=== PATIENT | female | born 1975 | race Caucasian/White ===

== ENCOUNTER → 2018-09-13 10:35 | Outpatient (CLI) | payer BC, SELFPAY ==
--- NOTE | 2018-09-13 10:37 | DI.RAD.S_ITS ---
PROCEDURE: XR HIP W PEL IF DONE LT MIN 4V INDICATIONS: Left hip pain-possible osteoarthritis TECHNIQUE: AP pelvis with lateral view(s) of the left and right hip(s). COMPARISON: None. FINDINGS: Bones: No fractures or dislocations. Pelvic ring appears intact. No suspicious bony lesions. There is mild symmetric hip joint degeneration bilaterally. There is a small ossicle adjacent to the left superior labrum. Soft tissues: The visualized bowel gas pattern is normal. No suspicious soft tissue calcifications. IMPRESSION: 1. A small ossicle adjacent to the left superior labrum. If labral pathology is suspected, MR hip arthrogram may be helpful. 2. Mild symmetric hip joint degeneration bilaterally. Dictated by: Aneesh Singh M.D. on 09/13/2018 at 13:41 Approved by: Aneesh Singh M.D. on 09/13/2018 at 13:43
== END ==
PROVIDERS: Family Provider Physician Assistant; PCP Physician Assistant; Visit Provider Physician Assistant
DX: M25.552 Pain in left hip (principal); M16.0 Bilateral primary osteoarthritis of hip; G89.29 Other chronic pain
CPT/HCPCS: 73522

== ENCOUNTER 2019-04-18 09:00 | Outpatient (RCR) | payer BC, SELFPAY ==
--- NOTE | 2018-10-18 12:48 | PT.OIE ---
Current Diagnoses Other chronic pain (10/18/18) Pain in left hip (10/18/18) Other symptoms and signs involving the musculoskeletal system (10/18/18) Past Surgical History Status post laparoscopy Provider Visit Care Team Role Provider Type Indu Kim PA-C Attending Provider Advanced Black Puller Primary Care Provider Specialty: Medical Address: [address] [place] [address], [id number] Email: [email or web address] Physical Therapy Initial Evaluation PT-OP-A Visit Information Start: 10/18/18 11:23 Freq: Status: Active Protocol: Document 10/18/18 09:45 HH (Rec: 10/18/18 12:48 HH [email or web address]) Out-Patient Physical Therapy Visit Information Visit Information Visit Type Initial Evaluation Visit Start Time 09:45 Visit Stop Time 10:30 Total Visit Minutes 45 Visit Number 1 Number of SALSA DANCE INSTRUCTOR Visits 0 Evaluation Information Evaluation Date 10/18/18 PT-OP-B Current Condition Start: 10/18/18 11:23 Freq: Status: Active Protocol: Document 10/18/18 09:45 HH (Rec: 10/18/18 12:48 HH [email or web address]) Current Condition History of Current Condition Onset Date 2 years ago Current Complaints L hip pain, difficulty in running and lifting History of Current Condition Pt is a 43 yo female who has 4 procedure for her 4 children over the past 20 years. Pt stated her L hip pain symptoms started around 2years ago as a constant deep, achy and dull joint pain and occasional pinching sensation. Pain tends to get worse with inactivity/ increase physical work such as running and lifting but gets better with warm up and non strenuous movements. Pt thinks she has poor hip flexibility and poor abdominal strength. She noticed there's some separation between her abdominal muscle and bulging muscle mass on the side of belly button. Pt currently works out 3x/week and she notices her quads and hip muscles tend to get sore/ fatigue very often during abdominal exercises. She reports she has hernia at L lower quadrant of her abdominal area and it is very painful during coughing/ exertion. Pt tends to give pressure/compressure to that area during coughing and exertion. In addition, pt also c/o L jaw pain, R shoulder pain and R mid back pain since her 2nd children was born when she was 22yo. Pt stated she did x-ray and reports there's arthritis change and hopefully she doesnt need any surgery to address aforementioned symptoms. Treatment Goals Patient/Caregiver Goals 1. Avoid surgery for hernia 2. To increase hip mobility and abdominal strength 3. To be able to run / lift weights again as her workout routine. Prior Functional Status Baseline Function- ADL's Independent Baseline Function- Mobility Independent Current Functional Impairments (Reported) Functional Limitations- ADL's indepedent without difficulty Functional Limitations- Mobility/Gait indepedent without difficulty Functional Limitations- Recreation/ Unable to run / lift heavy Hobbies weight Personal Factors Other Personal Factors That May Effect L lower abdominal hernia Therapy/Recovery multiple procedure at lower abdominal PT-OP-C Subjective Start: 10/18/18 11:23 Freq: Status: Active Protocol: Document 10/18/18 09:45 (Rec: 10/18/18 12:48 [email or web address]) OP-PT Subjective Patient Comments Patient Comments My hip feels achy constantly. Patient Questionnaires Lower Extremity Functional Scale LEFS Score 76 LEFS Impairment 1 to 19% Impaired (Score 63-79 ) OP-PT Pain Assessment Location Left Hip Intensity 4 Scale Used Numeric (1 - 10) Description Aching Dull Pinching Pressure Frequency Constant Pain Aggravating Factors Position Changing Position Sitting Lifting Pain Alleviating Factors Standing Exercise PT-OP-F Manual Assessment Start: 10/18/18 11:23 Freq: Status: Active Protocol: Document 10/18/18 09:45 (Rec: 10/18/18 12:48 [email or web address]) Manual Assessments Soft Tissue Assessment Soft Tissue Mobility Assessment Tenderness noted at L hip flexors and adductors region PT-OP-H Neuro Start: 10/18/18 11:23 Freq: Status: Active Protocol: Document 10/18/18 09:45 (Rec: 10/18/18 12:48 [email or web address]) Deep Tendon Reflex & Clonus Assessment Deep Tendon Reflex Right Achilles Deep Tendon Reflex 2+ Normal Left Achilles Deep Tendon Reflex 2+ Normal Right Patellar Deep Tendon Reflex 2+ Normal Left Patellar Deep Tendon Reflex 2+ Normal PT-OP-J Posture/Palpation/Skin Start: 10/18/18 11:23 Freq: Status: Active Protocol: Document 10/18/18 09:45 HH (Rec: 10/18/18 12:48 [email or web address]) Posture Evaluation Position Standing Evaluation View Posterior T-Spine Posture Flexible Scoliosis on (L) L-Spine Posture Flexible Scoliosis on (R) PT-OP-K Range of Motion Start: 10/18/18 11:23 Freq: Status: Active Protocol: Document 10/18/18 09:45 (Rec: 10/18/18 12:48 [email or web address]) Lumbar Spine Range of Motion Lumbar Spine Active Percentage Testing Position Standing Flexion 80 Extension 60 Rotation Left 60 Rotation Right 60 Lateral Flexion Left 60 Lateral Flexion Right 60 ROM Limitations Soft Tissue Tightness Hip Goniometric Range of Motion Hip Measured in Degrees Right Active Hip ROM WFL Yes Testing Position Supine Flexion w/Knee Flexed 142 Extension 20 Abduction 40 Left Active Hip ROM WFL Yes Testing Position Supine Flexion w/Knee Flexed 145 Extension 20 Abduction 35 PT-OP-L Special Tests Start: 10/18/18 11:23 Freq: Status: Active Protocol: Document 10/18/18 09:45 (Rec: 10/18/18 12:48 [email or web address]) Special Tests Lumbar Spine Special Tests Other- 1 Test Results +ve Comments noticeable separation between rectus abdominis Standing Flexion Test Results +ve Comments mild hump at L thoracic and R lumbar region Hip Special Tests ELVIA Test Results -ve bilaterally Scour Test Test Results +ve bilaterally Comments reports of slight discomfort bilaterally Viraj Test Results -ve bilaterally PT-OP-M Strength Start: 10/18/18 11:23 Freq: Status: Active Protocol: Document 10/18/18 09:45 (Rec: 10/18/18 12:48 [email or web address]) Trunk Strength Trunk Manual Muscle Testing Testing Position Supine Flexion 3+ Fair+ Comments requested pt to perform modified hollow hold with knee flexed. Pt uses upper abdominal and hip flexors primarily to maintain stability. Pt reports doesnt feel much at lower abs. Hip Strength Hip Manual Muscle Testing Right Flexion (L2) 3+ Fair+ Extension (S1) 3+ Fair+ Abduction 4+ Good+ Adduction 4+ Good+ Left Flexion (L2) 3+ Fair+ Extension (S1) 3+ Fair+ Abduction 4+ Good+ Adduction 4+ Good+ PT-OP-T Assessment and Plan Start: 10/18/18 11:23 Freq: Status: Active Protocol: Document 10/18/18 09:45 (Rec: 10/18/18 12:48 [email or web address]) Physical Therapy Assessment Rehab Potential Rehabilitation Potential Excellent Evaluation Complexity Number of Personal Factors/Comorbidities 1-2 Number of Body Systems Impaired 1-2 Clinical Presentation at Evaluation Stable Impairments Impairments Activity Tolerance Functional Activities Pain Posture ROM Soft Tissue Mobility Strength Tone Other Concerns Barriers to Rehabilitation L lower abdominal hernia multiple procedure at lower abdominal Goals Running Impairment pt currently unable to run due to hip pain Chief Concierge Goal (LTG) Pt will be able to run for a 1 mile without symptoms LTG Duration 8 weeks HEP Impairment pt does not have a safe HEP to comply Chief Concierge Goal (LTG) Pt will comply to HEP independently with proper body mechanics to improve overall strength and injury prevention LEFS Impairment lowered LEFS score Shelter Goal (LTG) To increase pt's impairment level to 0% (currently 1-19% at 76) to improve quality of life LTG Duration 12 weeks Strength Impairment impaired abdominal and hip strength Chief Concierge Goal (LTG) To improve pt's hip and abdominal strength by 1MMT to increase pt's trunk stability for lifting/ running activities LTG Duration 12 weeks Assessment Summary Assessment Pt is a 43yo female presented to clinic with L hip pain since 2 years ago. Pt had 4 c- section procedures over the past 20 years and L abdominal hernia. Upon assessment, pt presents noticeable decreased abdominal and hip strength. There's also a noticeable separation between rectus abdominal (approx 2mm) which possibly indicates Diastasis Recti. Pt also tends to primarily use upper abdominals and hip flexors during hollow hold position/ sit up exercise which possibly increases amf mechanic stress to B hip joints anteriorly. Pt will benefit from skill physical therapy for trunk stabilization/ sthrengthening, hip stabilization, hip/ B LEs strengthening, manual therapy , postural synagogue. Physical Therapy Plan Frequency and Duration Frequency of Treatment 2x/Week Duration of Treatment 12 Plan of Care Start Date 10/18/18 Plan of Care End Date 01/17/19 Therapeutic Interventions Therapeutic Interventions Home Exercise Program Joint Mobilizations Manual Therapy Neuromuscular Re-education Patient/Caregiver Education Self-Care/Home Management Soft Tissue Mobilization Therapeutic Activities Therapeutic Exercises Modalities Electric Stimulation Hot Packs Ultrasound Next Visit Focus/Plan Next Note Type Treatment Note Next Visit Plan assess post hip joint capsule mobility abdominal stabilization and hip stabilization training as gabrielle
--- NOTE | 2018-10-18 12:48 | PT.OPPOC ---
Current Diagnoses Other chronic pain (10/18/18) Pain in left hip (10/18/18) Other symptoms and signs involving the musculoskeletal system (10/18/18) Provider Visit Care Team Role Provider Type Indu Kim PA-C Attending Provider Advanced Assistant Produce Manager Primary Care Provider Specialty: Medical Address: [address] [place] [address], [id number] Email: [email or web address] Plan Of Care PT-OP-T Assessment and Plan Start: 10/18/18 11:23 Freq: Status: Active Protocol: Document 10/18/18 09:45 HH (Rec: 10/18/18 12:48 [email or web address]) Physical Therapy Assessment Rehab Potential Rehabilitation Potential Excellent Evaluation Complexity Number of Personal Factors/Comorbidities 1-2 Number of Body Systems Impaired 1-2 Clinical Presentation at Evaluation Stable Impairments Impairments Activity Tolerance Functional Activities Pain Posture ROM Soft Tissue Mobility Strength Tone Other Concerns Barriers to Rehabilitation L lower abdominal hernia multiple procedure at lower abdominal Goals Running Impairment pt currently unable to run due to hip pain Finish Specialist Goal (LTG) Pt will be able to run for a 1 mile without symptoms LTG Duration 8 weeks HEP Impairment pt does not have a safe HEP to comply Finish Specialist Goal (LTG) Pt will comply to HEP independently with proper body mechanics to improve overall strength and injury prevention LEFS Impairment lowered LEFS score Finish Specialist Goal (LTG) To increase pt's impairment level to 0% (currently 1-19% at 76) to improve quality of life LTG Duration 12 weeks Strength Impairment impaired abdominal and hip strength Finish Specialist Goal (LTG) To improve pt's hip and abdominal strength by 1MMT to increase pt's trunk stability for lifting/ running activities LTG Duration 12 weeks Assessment Summary Assessment Pt is a 43yo female presented to clinic with L hip pain since 2 years ago. Pt had 4 c- section procedures over the past 20 years and L abdominal hernia. Upon assessment, pt presents noticeable decreased abdominal and hip strength. There's also a noticeable separation between rectus abdominal (approx 2mm) which possibly indicates Diastasis Recti. Pt also tends to primarily use upper abdominals and hip flexors during hollow hold position/ sit up exercise which possibly increases video player mechanic stress to B hip joints anteriorly. Pt will benefit from skill physical therapy for trunk stabilization/ sthrengthening, hip stabilization, hip/ B LEs strengthening, manual therapy , postural uatsdin. Physical Therapy Plan Frequency and Duration Frequency of Treatment 2x/Week Duration of Treatment 12 Plan of Care Start Date 10/18/18 Plan of Care End Date 01/17/19 Therapeutic Interventions Therapeutic Interventions Home Exercise Program Joint Mobilizations Manual Therapy Neuromuscular Re-education Patient/Caregiver Education Self-Care/Home Management Soft Tissue Mobilization Therapeutic Activities Therapeutic Exercises Modalities Electric Stimulation Hot Packs Ultrasound Next Visit Focus/Plan Next Note Type Treatment Note Next Visit Plan assess post hip joint capsule mobility abdominal stabilization and hip stabilization training as gabrielle Plan of Care Dates Plan of Care Start Date 10/18/18 Plan of Care End Date 01/17/19 Please Sign and Return: I have reviewed this Plan of Care and certify that the skilled therapy services above are required to meet the patient?s needs. Physician Signature Date Printed Name and Credentials Clinical Instructor Signature Printed Name and Credentials
--- NOTE | 2018-10-24 18:53 | PT.OTN ---
Current Diagnoses Other chronic pain (10/24/18) Pain in left hip (10/24/18) Other symptoms and signs involving the musculoskeletal system (10/24/18) Physical Therapy Treatment Note PT-OP-A Visit Information Start: 10/18/18 11:23 Freq: Status: Active Protocol: Document 10/24/18 18:47 [facility] (Rec: 10/24/18 18:53 [facility] [email or web address]) Out-Patient Physical Therapy Visit Information Visit Information Visit Type Treatment Note Visit Start Time 14:35 Visit Stop Time 15:20 Total Visit Minutes 45 Visit Number 2 Number of AUTOMOTIVE PARTS COUNTER ASSOCIATE Visits 0 PT-OP-B Current Condition Start: 10/18/18 11:23 Freq: Status: Active Protocol: Document 10/18/18 09:45 HH (Rec: 10/18/18 12:48 HH [email or web address]) Current Condition History of Current Condition Onset Date 2 years ago Current Complaints L hip pain, difficulty in running and lifting History of Current Condition Pt is a 43 yo female who has 4 procedure for her 4 children over the past 20 years. Pt stated her L hip pain symptoms started around 2years ago as a constant deep, achy and dull joint pain and occasional pinching sensation. Pain tends to get worse with inactivity/ increase physical work such as running and lifting but gets better with warm up and non strenuous movements. Pt thinks she has poor hip flexibility and poor abdominal strength. She noticed there's some separation between her abdominal muscle and bulging muscle mass on the side of belly button. Pt currently works out 3x/week and she notices her quads and hip muscles tend to get sore/ fatigue very often during abdominal exercises. She reports she has hernia at L lower quadrant of her abdominal area and it is very painful during coughing/ exertion. Pt tends to give pressure/compressure to that area during coughing and exertion. In addition, pt also c/o L jaw pain, R shoulder pain and R mid back pain since her 2nd children was born when she was 22yo. Pt stated she did x-ray and reports there's arthritis change and hopefully she doesnt need any surgery to address aforementioned symptoms. Treatment Goals Patient/Caregiver Goals 1. Avoid surgery for hernia 2. To increase hip mobility and abdominal strength 3. To be able to run / lift weights again as her workout routine. Prior Functional Status Baseline Function- ADL's Independent Baseline Function- Mobility Independent Current Functional Impairments (Reported) Functional Limitations- ADL's indepedent without difficulty Functional Limitations- Mobility/Gait indepedent without difficulty Functional Limitations- Recreation/ Unable to run / lift heavy Hobbies weight Personal Factors Other Personal Factors That May Effect L lower abdominal hernia Therapy/Recovery multiple procedure at lower abdominal PT-OP-C Subjective Start: 10/18/18 11:23 Freq: Status: Active Protocol: Document 10/24/18 18:47 [facility] (Rec: 10/24/18 18:53 [facility] [email or web address]) OP-PT Subjective Patient Comments Patient Comments Pt reports she is excited to start PT PT-OP-F Manual Assessment Start: 10/18/18 11:23 Freq: Status: Active Protocol: Document 10/18/18 09:45 HH (Rec: 10/18/18 12:48 HH [email or web address]) Manual Assessments Soft Tissue Assessment Soft Tissue Mobility Assessment Tenderness noted at L hip flexors and adductors region PT-OP-H Neuro Start: 10/18/18 11:23 Freq: Status: Active Protocol: Document 10/18/18 09:45 HH (Rec: 10/18/18 12:48 HH [email or web address]) Deep Tendon Reflex & Clonus Assessment Deep Tendon Reflex Right Achilles Deep Tendon Reflex 2+ Normal Left Achilles Deep Tendon Reflex 2+ Normal Right Patellar Deep Tendon Reflex 2+ Normal Left Patellar Deep Tendon Reflex 2+ Normal PT-OP-J Posture/Palpation/Skin Start: 10/18/18 11:23 Freq: Status: Active Protocol: Document 10/18/18 09:45 HH (Rec: 10/18/18 12:48 HH [email or web address]) Posture Evaluation Position Standing Evaluation View Posterior T-Spine Posture Flexible Scoliosis on (L) L-Spine Posture Flexible Scoliosis on (R) PT-OP-K Range of Motion Start: 10/18/18 11:23 Freq: Status: Active Protocol: Document 10/18/18 09:45 HH (Rec: 10/18/18 12:48 HH [email or web address]) Lumbar Spine Range of Motion Lumbar Spine Active Percentage Testing Position Standing Flexion 80 Extension 60 Rotation Left 60 Rotation Right 60 Lateral Flexion Left 60 Lateral Flexion Right 60 ROM Limitations Soft Tissue Tightness Hip Goniometric Range of Motion Hip Measured in Degrees Right Active Hip ROM WFL Yes Testing Position Supine Flexion w/Knee Flexed 142 Extension 20 Abduction 40 Left Active Hip ROM WFL Yes Testing Position Supine Flexion w/Knee Flexed 145 Extension 20 Abduction 35 PT-OP-L Special Tests Start: 10/18/18 11:23 Freq: Status: Active Protocol: Document 10/18/18 09:45 HH (Rec: 10/18/18 12:48 HH [email or web address]) Special Tests Lumbar Spine Special Tests Other- 1 Test Results +ve Comments noticeable separation between rectus abdominis Standing Flexion Test Results +ve Comments mild hump at L thoracic and R lumbar region Hip Special Tests ELVIA Test Results -ve bilaterally Scour Test Test Results +ve bilaterally Comments reports of slight discomfort bilaterally Viraj Test Results -ve bilaterally PT-OP-M Strength Start: 10/18/18 11:23 Freq: Status: Active Protocol: Document 10/18/18 09:45 HH (Rec: 10/18/18 12:48 HH [email or web address]) Trunk Strength Trunk Manual Muscle Testing Testing Position Supine Flexion 3+ Fair+ Comments requested pt to perform modified hollow hold with knee flexed. Pt uses upper abdominal and hip flexors primarily to maintain stability. Pt reports doesnt feel much at lower abs. Hip Strength Hip Manual Muscle Testing Right Flexion (L2) 3+ Fair+ Extension (S1) 3+ Fair+ Abduction 4+ Good+ Adduction 4+ Good+ Left Flexion (L2) 3+ Fair+ Extension (S1) 3+ Fair+ Abduction 4+ Good+ Adduction 4+ Good+ PT-OP-Q Treatments Start: 10/18/18 11:23 Freq: Status: Active Protocol: Document 10/24/18 18:47 [facility] (Rec: 10/24/18 18:53 [facility] [email or web address]) Therapeutic Exercises Supine Exercises viraj test Supine Exercise Name stretch Side bilateral Reps/Minutes 30 sec TAbd Supine Exercise Name transverse abdominus engagmeent Reps/Minutes 5 sec hold with breathing x10 Comments unable to add LE movement w/ hip flexor Prone Exercises IR/ER Prone Exercise Name resisted Side bilateral Equipment Used L1 Reps/Minutes 10 Other Exercises quadruped Other Exercise Name hip ext Side bilateral Reps/Minutes 10 Comments focus on core & neutral spine yoga Other Exercise Name jovanny pose fwd & to side ( 30sec), downward dog ([id number]) , cat/camel (10) Manual Therapy Treatment Joint Mobilizations innominate Joint L Direction flex FM sacrum Joint sacrum Direction R UPA FM hip Joint L hip Direction on axis ER & IR FM w/neuro re edu for range; inf glide PT-OP-T Assessment and Plan Start: 10/18/18 11:23 Freq: Status: Active Protocol: Document 10/24/18 18:47 [facility] (Rec: 10/24/18 18:53 [facility] [email or web address]) Physical Therapy Assessment Goals Running Impairment pt currently unable to run due to hip pain Care Home Goal (LTG) Pt will be able to run for a 1 mile without symptoms LTG Duration 8 weeks HEP Impairment pt does not have a safe HEP to comply Care Home Goal (LTG) Pt will comply to HEP independently with proper body mechanics to improve overall strength and injury prevention LEFS Impairment lowered LEFS score Lobbyist Goal (LTG) To increase pt's impairment level to 0% (currently 1-19% at 76) to improve quality of life LTG Duration 12 weeks Strength Impairment impaired abdominal and hip strength Care Home Goal (LTG) To improve pt's hip and abdominal strength by 1MMT to increase pt's trunk stability for lifting/ running activities LTG Duration 12 weeks Assessment Summary Assessment Pt has difficulty with using core mm for LE movements and requires significant use of hip flexors. Pt did well with quadruped for core activiation . She has significant deficits and core facilitation & utilization. Physical Therapy Plan Frequency and Duration Frequency of Treatment 2x/Week Duration of Treatment 12 Plan of Care Start Date 10/18/18 Plan of Care End Date 01/17/19 Next Visit Focus/Plan Next Note Type Treatment Note Next Visit Plan posture edu, PNF in s/l, hip & pelvis mobility
--- NOTE | 2018-10-26 15:18 | PT.OTN ---
Current Diagnoses Other chronic pain (10/26/18) Pain in left hip (10/26/18) Other symptoms and signs involving the musculoskeletal system (10/26/18) Physical Therapy Treatment Note PT-OP-A Visit Information Start: 10/18/18 11:23 Freq: Status: Active Protocol: Document 10/26/18 14:12 [facility] (Rec: 10/26/18 15:18 [facility] [id number]) Out-Patient Physical Therapy Visit Information Visit Information Visit Type Treatment Note Visit Start Time 14:30 Visit Stop Time 15:10 Total Visit Minutes 40 Visit Number 3 Number of CORE MOUNTER Visits 0 PT-OP-B Current Condition Start: 10/18/18 11:23 Freq: Status: Active Protocol: Document 10/18/18 09:45 HH (Rec: 10/18/18 12:48 HH [email or web address]) Current Condition History of Current Condition Onset Date 2 years ago Current Complaints L hip pain, difficulty in running and lifting History of Current Condition Pt is a 43 yo female who has 4 procedure for her 4 children over the past 20 years. Pt stated her L hip pain symptoms started around 2years ago as a constant deep, achy and dull joint pain and occasional pinching sensation. Pain tends to get worse with inactivity/ increase physical work such as running and lifting but gets better with warm up and non strenuous movements. Pt thinks she has poor hip flexibility and poor abdominal strength. She noticed there's some separation between her abdominal muscle and bulging muscle mass on the side of belly button. Pt currently works out 3x/week and she notices her quads and hip muscles tend to get sore/ fatigue very often during abdominal exercises. She reports she has hernia at L lower quadrant of her abdominal area and it is very painful during coughing/ exertion. Pt tends to give pressure/compressure to that area during coughing and exertion. In addition, pt also c/o L jaw pain, R shoulder pain and R mid back pain since her 2nd children was born when she was 22yo. Pt stated she did x-ray and reports there's arthritis change and hopefully she doesnt need any surgery to address aforementioned symptoms. Treatment Goals Patient/Caregiver Goals 1. Avoid surgery for hernia 2. To increase hip mobility and abdominal strength 3. To be able to run / lift weights again as her workout routine. Prior Functional Status Baseline Function- ADL's Independent Baseline Function- Mobility Independent Current Functional Impairments (Reported) Functional Limitations- ADL's indepedent without difficulty Functional Limitations- Mobility/Gait indepedent without difficulty Functional Limitations- Recreation/ Unable to run / lift heavy Hobbies weight Personal Factors Other Personal Factors That May Effect L lower abdominal hernia Therapy/Recovery multiple procedure at lower abdominal PT-OP-C Subjective Start: 10/18/18 11:23 Freq: Status: Active Protocol: Document 10/26/18 14:12 [facility] (Rec: 10/26/18 15:18 [facility] [id number]) OP-PT Subjective Patient Comments Patient Comments Pt reports compliance with HEP PT-OP-F Manual Assessment Start: 10/18/18 11:23 Freq: Status: Active Protocol: Document 10/18/18 09:45 HH (Rec: 10/18/18 12:48 HH [email or web address]) Manual Assessments Soft Tissue Assessment Soft Tissue Mobility Assessment Tenderness noted at L hip flexors and adductors region PT-OP-H Neuro Start: 10/18/18 11:23 Freq: Status: Active Protocol: Document 10/18/18 09:45 HH (Rec: 10/18/18 12:48 HH [email or web address]) Deep Tendon Reflex & Clonus Assessment Deep Tendon Reflex Right Achilles Deep Tendon Reflex 2+ Normal Left Achilles Deep Tendon Reflex 2+ Normal Right Patellar Deep Tendon Reflex 2+ Normal Left Patellar Deep Tendon Reflex 2+ Normal PT-OP-J Posture/Palpation/Skin Start: 10/18/18 11:23 Freq: Status: Active Protocol: Document 10/18/18 09:45 HH (Rec: 10/18/18 12:48 HH [email or web address]) Posture Evaluation Position Standing Evaluation View Posterior T-Spine Posture Flexible Scoliosis on (L) L-Spine Posture Flexible Scoliosis on (R) PT-OP-K Range of Motion Start: 10/18/18 11:23 Freq: Status: Active Protocol: Document 10/18/18 09:45 HH (Rec: 10/18/18 12:48 HH [email or web address]) Lumbar Spine Range of Motion Lumbar Spine Active Percentage Testing Position Standing Flexion 80 Extension 60 Rotation Left 60 Rotation Right 60 Lateral Flexion Left 60 Lateral Flexion Right 60 ROM Limitations Soft Tissue Tightness Hip Goniometric Range of Motion Hip Measured in Degrees Right Active Hip ROM WFL Yes Testing Position Supine Flexion w/Knee Flexed 142 Extension 20 Abduction 40 Left Active Hip ROM WFL Yes Testing Position Supine Flexion w/Knee Flexed 145 Extension 20 Abduction 35 PT-OP-L Special Tests Start: 10/18/18 11:23 Freq: Status: Active Protocol: Document 10/18/18 09:45 HH (Rec: 10/18/18 12:48 HH [email or web address]) Special Tests Lumbar Spine Special Tests Other- 1 Test Results +ve Comments noticeable separation between rectus abdominis Standing Flexion Test Results +ve Comments mild hump at L thoracic and R lumbar region Hip Special Tests ELVIA Test Results -ve bilaterally Scour Test Test Results +ve bilaterally Comments reports of slight discomfort bilaterally Viraj Test Results -ve bilaterally PT-OP-M Strength Start: 10/18/18 11:23 Freq: Status: Active Protocol: Document 10/18/18 09:45 HH (Rec: 10/18/18 12:48 HH [email or web address]) Trunk Strength Trunk Manual Muscle Testing Testing Position Supine Flexion 3+ Fair+ Comments requested pt to perform modified hollow hold with knee flexed. Pt uses upper abdominal and hip flexors primarily to maintain stability. Pt reports doesnt feel much at lower abs. Hip Strength Hip Manual Muscle Testing Right Flexion (L2) 3+ Fair+ Extension (S1) 3+ Fair+ Abduction 4+ Good+ Adduction 4+ Good+ Left Flexion (L2) 3+ Fair+ Extension (S1) 3+ Fair+ Abduction 4+ Good+ Adduction 4+ Good+ PT-OP-Q Treatments Start: 10/18/18 11:23 Freq: Status: Active Protocol: Document 10/26/18 14:12 [facility] (Rec: 10/26/18 15:18 [facility] [id number]) Cardio Equipment Elliptical Duration (Minutes) 5 Resistance 2 Therapeutic Exercises Supine Exercises bridge Supine Exercise Name w/march Side bilateral Reps/Minutes 6 viraj test Supine Exercise Name stretch Side bilateral Reps/Minutes 30 sec TAbd Supine Exercise Name transverse abdominus engagmeent Reps/Minutes 5 sec hold with breathing x10 Comments unable to add LE movement w/ hip flexor Prone Exercises plank Prone Exercise Name plank on forearms Reps/Minutes 3x15 sec Comments focus on neutral position IR/ER Prone Exercise Name resisted Side bilateral Equipment Used L1 Reps/Minutes 8 Standing Exercises gait Standing Exercise Name press at wall Side bilateral Reps/Minutes 10 sec Other Exercises quadruped Other Exercise Name hip ext Side bilateral Reps/Minutes 10 Comments focus on core & neutral spine yoga Other Exercise Name jovanny pose fwd & to side ( 30sec), downward dog ([id number]) , cat/camel (10) Manual Therapy Treatment Soft Tissue Mobilization pirifromis Body Location piriformis R Mobilization Type Rolling Joint Mobilizations hip Joint L hip Direction on axis ER FM Neuro Re-Education Treatment Other Activities PNF Details post depression and ant elevation Comments rhythmic initiation & combo of isotonics & alt reversals PT-OP-T Assessment and Plan Start: 10/18/18 11:23 Freq: Status: Active Protocol: Document 10/26/18 14:12 [facility] (Rec: 10/26/18 15:18 [facility] [id number]) Physical Therapy Assessment Goals Running Impairment pt currently unable to run due to hip pain Residential Goal (LTG) Pt will be able to run for a 1 mile without symptoms LTG Duration 8 weeks HEP Impairment pt does not have a safe HEP to comply Medical Claims Analyst Goal (LTG) Pt will comply to HEP independently with proper body mechanics to improve overall strength and injury prevention LEFS Impairment lowered LEFS score Residential Goal (LTG) To increase pt's impairment level to 0% (currently 1-19% at 76) to improve quality of life LTG Duration 12 weeks Strength Impairment impaired abdominal and hip strength Residential Goal (LTG) To improve pt's hip and abdominal strength by 1MMT to increase pt's trunk stability for lifting/ running activities LTG Duration 12 weeks Assessment Summary Assessment Pt had significant difficulty with positioning in plank. She has dec core activitation in plank position but did improve with cueing. Difficulty with pelvic patterns with LE movements Physical Therapy Plan Frequency and Duration Frequency of Treatment 2x/Week Duration of Treatment 12 Plan of Care Start Date 10/18/18 Plan of Care End Date 01/17/19 Next Visit Focus/Plan Next Note Type Treatment Note Next Visit Plan PNF & posture
--- NOTE | 2018-10-31 15:12 | PT.OTN ---
Current Diagnoses Other chronic pain (10/31/18) Pain in left hip (10/31/18) Other symptoms and signs involving the musculoskeletal system (10/31/18) Physical Therapy Treatment Note PT-OP-A Visit Information Start: 10/18/18 11:23 Freq: Status: Active Protocol: Document 10/31/18 13:49 [facility] (Rec: 10/31/18 15:12 [facility] [id number]) Out-Patient Physical Therapy Visit Information Visit Information Visit Type Treatment Note Visit Start Time 13:50 Visit Stop Time 14:30 Total Visit Minutes 40 Visit Number 4 Number of TOP CAGER Visits 0 PT-OP-B Current Condition Start: 10/18/18 11:23 Freq: Status: Active Protocol: Document 10/18/18 09:45 HH (Rec: 10/18/18 12:48 HH [email or web address]) Current Condition History of Current Condition Onset Date 2 years ago Current Complaints L hip pain, difficulty in running and lifting History of Current Condition Pt is a 43 yo female who has 4 procedure for her 4 children over the past 20 years. Pt stated her L hip pain symptoms started around 2years ago as a constant deep, achy and dull joint pain and occasional pinching sensation. Pain tends to get worse with inactivity/ increase physical work such as running and lifting but gets better with warm up and non strenuous movements. Pt thinks she has poor hip flexibility and poor abdominal strength. She noticed there's some separation between her abdominal muscle and bulging muscle mass on the side of belly button. Pt currently works out 3x/week and she notices her quads and hip muscles tend to get sore/ fatigue very often during abdominal exercises. She reports she has hernia at L lower quadrant of her abdominal area and it is very painful during coughing/ exertion. Pt tends to give pressure/compressure to that area during coughing and exertion. In addition, pt also c/o L jaw pain, R shoulder pain and R mid back pain since her 2nd children was born when she was 22yo. Pt stated she did x-ray and reports there's arthritis change and hopefully she doesnt need any surgery to address aforementioned symptoms. Treatment Goals Patient/Caregiver Goals 1. Avoid surgery for hernia 2. To increase hip mobility and abdominal strength 3. To be able to run / lift weights again as her workout routine. Prior Functional Status Baseline Function- ADL's Independent Baseline Function- Mobility Independent Current Functional Impairments (Reported) Functional Limitations- ADL's indepedent without difficulty Functional Limitations- Mobility/Gait indepedent without difficulty Functional Limitations- Recreation/ Unable to run / lift heavy Hobbies weight Personal Factors Other Personal Factors That May Effect L lower abdominal hernia Therapy/Recovery multiple procedure at lower abdominal PT-OP-C Subjective Start: 10/18/18 11:23 Freq: Status: Active Protocol: Document 10/31/18 13:49 [facility] (Rec: 10/31/18 15:12 [facility] [id number]) OP-PT Subjective Patient Comments Patient Comments Pt reports she focused on her posture & walking and felt like she was doing well until she realized her knees were hurting a lot. PT-OP-F Manual Assessment Start: 10/18/18 11:23 Freq: Status: Active Protocol: Document 10/18/18 09:45 HH (Rec: 10/18/18 12:48 HH [email or web address]) Manual Assessments Soft Tissue Assessment Soft Tissue Mobility Assessment Tenderness noted at L hip flexors and adductors region PT-OP-H Neuro Start: 10/18/18 11:23 Freq: Status: Active Protocol: Document 10/18/18 09:45 HH (Rec: 10/18/18 12:48 [email or web address]) Deep Tendon Reflex & Clonus Assessment Deep Tendon Reflex Right Achilles Deep Tendon Reflex 2+ Normal Left Achilles Deep Tendon Reflex 2+ Normal Right Patellar Deep Tendon Reflex 2+ Normal Left Patellar Deep Tendon Reflex 2+ Normal PT-OP-J Posture/Palpation/Skin Start: 10/18/18 11:23 Freq: Status: Active Protocol: Document 10/18/18 09:45 HH (Rec: 10/18/18 12:48 [email or web address]) Posture Evaluation Position Standing Evaluation View Posterior T-Spine Posture Flexible Scoliosis on (L) L-Spine Posture Flexible Scoliosis on (R) PT-OP-K Range of Motion Start: 10/18/18 11:23 Freq: Status: Active Protocol: Document 10/18/18 09:45 HH (Rec: 10/18/18 12:48 [email or web address]) Lumbar Spine Range of Motion Lumbar Spine Active Percentage Testing Position Standing Flexion 80 Extension 60 Rotation Left 60 Rotation Right 60 Lateral Flexion Left 60 Lateral Flexion Right 60 ROM Limitations Soft Tissue Tightness Hip Goniometric Range of Motion Hip Measured in Degrees Right Active Hip ROM WFL Yes Testing Position Supine Flexion w/Knee Flexed 142 Extension 20 Abduction 40 Left Active Hip ROM WFL Yes Testing Position Supine Flexion w/Knee Flexed 145 Extension 20 Abduction 35 PT-OP-L Special Tests Start: 10/18/18 11:23 Freq: Status: Active Protocol: Document 10/18/18 09:45 (Rec: 10/18/18 12:48 [email or web address]) Special Tests Lumbar Spine Special Tests Other- 1 Test Results +ve Comments noticeable separation between rectus abdominis Standing Flexion Test Results +ve Comments mild hump at L thoracic and R lumbar region Hip Special Tests ELVIA Test Results -ve bilaterally Scour Test Test Results +ve bilaterally Comments reports of slight discomfort bilaterally Viraj Test Results -ve bilaterally PT-OP-M Strength Start: 10/18/18 11:23 Freq: Status: Active Protocol: Document 10/18/18 09:45 (Rec: 10/18/18 12:48 HH [email or web address]) Trunk Strength Trunk Manual Muscle Testing Testing Position Supine Flexion 3+ Fair+ Comments requested pt to perform modified hollow hold with knee flexed. Pt uses upper abdominal and hip flexors primarily to maintain stability. Pt reports doesnt feel much at lower abs. Hip Strength Hip Manual Muscle Testing Right Flexion (L2) 3+ Fair+ Extension (S1) 3+ Fair+ Abduction 4+ Good+ Adduction 4+ Good+ Left Flexion (L2) 3+ Fair+ Extension (S1) 3+ Fair+ Abduction 4+ Good+ Adduction 4+ Good+ PT-OP-Q Treatments Start: 10/18/18 11:23 Freq: Status: Active Protocol: Document 10/31/18 13:49 [facility] (Rec: 10/31/18 15:12 [facility] [id number]) Cardio Equipment Elliptical Duration (Minutes) 5 Resistance 3 Therapeutic Activity Therapeutic Activity posture Name standing Comments cueing & pics used Gait Training Gait Activity SLS Description attempted marching but unable w/o lat lean Comments SLS in mirror for balance walking Description assessment & dicussion Comments Edu on pt's excessive pelvis rotation to compenstate for push off running Description asssessment & discussion Comments pt never goes into knee ext & hip ext for push off and has excessive upper trunk rotation . Pt able to improve gait with cueing. Manual Therapy Treatment Soft Tissue Mobilization pirifromis Body Location piriformis R Mobilization Type Rolling Neuro Re-Education Treatment Other Activities PNF Details post depression and ant elevation Comments rhythmic initiation & combo of isotonics & alt reversals PT-OP-T Assessment and Plan Start: 10/18/18 11:23 Freq: Status: Active Protocol: Document 10/31/18 13:49 [facility] (Rec: 10/31/18 15:12 [facility] [id number]) Physical Therapy Assessment Goals Running Impairment pt currently unable to run due to hip pain Intermediate Goal (LTG) Pt will be able to run for a 1 mile without symptoms LTG Duration 8 weeks HEP Impairment pt does not have a safe HEP to comply It Audit Manager Goal (LTG) Pt will comply to HEP independently with proper body mechanics to improve overall strength and injury prevention LEFS Impairment lowered LEFS score Intermediate Goal (LTG) To increase pt's impairment level to 0% (currently 1-19% at 76) to improve quality of life LTG Duration 12 weeks Strength Impairment impaired abdominal and hip strength It Audit Manager Goal (LTG) To improve pt's hip and abdominal strength by 1MMT to increase pt's trunk stability for lifting/ running activities LTG Duration 12 weeks Assessment Summary Assessment Pt was able to do self release indep. She had difficulty with SLS for gait and had to use UE support to gain balance d/t tendency to lat shift & lean. Improved ability to pelvis PNF motion but difficulty connecting motion w /LE motion. Physical Therapy Plan Frequency and Duration Frequency of Treatment 2x/Week Duration of Treatment 12 Plan of Care Start Date 10/18/18 Plan of Care End Date 01/17/19 Next Visit Focus/Plan Next Note Type Treatment Note Next Visit Plan cont to facilitate gait with PNF
--- NOTE | 2018-11-02 15:37 | PT.OTN ---
Current Diagnoses Other chronic pain (11/02/18) Pain in left hip (11/02/18) Other symptoms and signs involving the musculoskeletal system (11/02/18) Physical Therapy Treatment Note PT-OP-A Visit Information Start: 10/18/18 11:23 Freq: Status: Active Protocol: Document 11/02/18 14:31 LR (Rec: 11/02/18 15:37 [facility] [id number]) Out-Patient Physical Therapy Visit Information Visit Information Visit Type Treatment Note Visit Start Time 14:30 Visit Stop Time 15:15 Total Visit Minutes 45 Visit Number 5 Number of METAL MACHINIST Visits 0 PT-OP-B Current Condition Start: 10/18/18 11:23 Freq: Status: Active Protocol: Document 10/18/18 09:45 HH (Rec: 10/18/18 12:48 HH [email or web address]) Current Condition History of Current Condition Onset Date 2 years ago Current Complaints L hip pain, difficulty in running and lifting History of Current Condition Pt is a 43 yo female who has 4 procedure for her 4 children over the past 20 years. Pt stated her L hip pain symptoms started around 2years ago as a constant deep, achy and dull joint pain and occasional pinching sensation. Pain tends to get worse with inactivity/ increase physical work such as running and lifting but gets better with warm up and non strenuous movements. Pt thinks she has poor hip flexibility and poor abdominal strength. She noticed there's some separation between her abdominal muscle and bulging muscle mass on the side of belly button. Pt currently works out 3x/week and she notices her quads and hip muscles tend to get sore/ fatigue very often during abdominal exercises. She reports she has hernia at L lower quadrant of her abdominal area and it is very painful during coughing/ exertion. Pt tends to give pressure/compressure to that area during coughing and exertion. In addition, pt also c/o L jaw pain, R shoulder pain and R mid back pain since her 2nd children was born when she was 22yo. Pt stated she did x-ray and reports there's arthritis change and hopefully she doesnt need any surgery to address aforementioned symptoms. Treatment Goals Patient/Caregiver Goals 1. Avoid surgery for hernia 2. To increase hip mobility and abdominal strength 3. To be able to run / lift weights again as her workout routine. Prior Functional Status Baseline Function- ADL's Independent Baseline Function- Mobility Independent Current Functional Impairments (Reported) Functional Limitations- ADL's indepedent without difficulty Functional Limitations- Mobility/Gait indepedent without difficulty Functional Limitations- Recreation/ Unable to run / lift heavy Hobbies weight Personal Factors Other Personal Factors That May Effect L lower abdominal hernia Therapy/Recovery multiple procedure at lower abdominal PT-OP-C Subjective Start: 10/18/18 11:23 Freq: Status: Active Protocol: Document 11/02/18 14:31 [facility] (Rec: 11/02/18 15:37 [facility] [id number]) OP-PT Subjective Patient Comments Patient Comments Pt reports her hip felt more lose after last session when she was working out. Pt recalls about 4 years ago before the hip started hurting , she hit her tailbone and likely broke it in a sledding accident and that was right before hip pain started. PT-OP-F Manual Assessment Start: 10/18/18 11:23 Freq: Status: Active Protocol: Document 10/18/18 09:45 (Rec: 10/18/18 12:48 [email or web address]) Manual Assessments Soft Tissue Assessment Soft Tissue Mobility Assessment Tenderness noted at L hip flexors and adductors region PT-OP-H Neuro Start: 10/18/18 11:23 Freq: Status: Active Protocol: Document 10/18/18 09:45 HH (Rec: 10/18/18 12:48 [email or web address]) Deep Tendon Reflex & Clonus Assessment Deep Tendon Reflex Right Achilles Deep Tendon Reflex 2+ Normal Left Achilles Deep Tendon Reflex 2+ Normal Right Patellar Deep Tendon Reflex 2+ Normal Left Patellar Deep Tendon Reflex 2+ Normal PT-OP-J Posture/Palpation/Skin Start: 10/18/18 11:23 Freq: Status: Active Protocol: Document 10/18/18 09:45 HH (Rec: 10/18/18 12:48 [email or web address]) Posture Evaluation Position Standing Evaluation View Posterior T-Spine Posture Flexible Scoliosis on (L) L-Spine Posture Flexible Scoliosis on (R) PT-OP-K Range of Motion Start: 10/18/18 11:23 Freq: Status: Active Protocol: Document 10/18/18 09:45 HH (Rec: 10/18/18 12:48 [email or web address]) Lumbar Spine Range of Motion Lumbar Spine Active Percentage Testing Position Standing Flexion 80 Extension 60 Rotation Left 60 Rotation Right 60 Lateral Flexion Left 60 Lateral Flexion Right 60 ROM Limitations Soft Tissue Tightness Hip Goniometric Range of Motion Hip Measured in Degrees Right Active Hip ROM WFL Yes Testing Position Supine Flexion w/Knee Flexed 142 Extension 20 Abduction 40 Left Active Hip ROM WFL Yes Testing Position Supine Flexion w/Knee Flexed 145 Extension 20 Abduction 35 PT-OP-L Special Tests Start: 10/18/18 11:23 Freq: Status: Active Protocol: Document 10/18/18 09:45 (Rec: 10/18/18 12:48 [email or web address]) Special Tests Lumbar Spine Special Tests Other- 1 Test Results +ve Comments noticeable separation between rectus abdominis Standing Flexion Test Results +ve Comments mild hump at L thoracic and R lumbar region Hip Special Tests ELVIA Test Results -ve bilaterally Scour Test Test Results +ve bilaterally Comments reports of slight discomfort bilaterally Viraj Test Results -ve bilaterally PT-OP-M Strength Start: 10/18/18 11:23 Freq: Status: Active Protocol: Document 10/18/18 09:45 (Rec: 10/18/18 12:48 [email or web address]) Trunk Strength Trunk Manual Muscle Testing Testing Position Supine Flexion 3+ Fair+ Comments requested pt to perform modified hollow hold with knee flexed. Pt uses upper abdominal and hip flexors primarily to maintain stability. Pt reports doesnt feel much at lower abs. Hip Strength Hip Manual Muscle Testing Right Flexion (L2) 3+ Fair+ Extension (S1) 3+ Fair+ Abduction 4+ Good+ Adduction 4+ Good+ Left Flexion (L2) 3+ Fair+ Extension (S1) 3+ Fair+ Abduction 4+ Good+ Adduction 4+ Good+ PT-OP-Q Treatments Start: 10/18/18 11:23 Freq: Status: Active Protocol: Document 11/02/18 14:31 LR (Rec: 11/02/18 15:37 [facility] [id number]) Cardio Equipment Elliptical Duration (Minutes) 3 Resistance 3 Other stopped d/t righ hip pain that stopped when she got off Gait Training Gait Activity gait at wall Description focusing on post depression B exaggerated walking Description focus on push off SLS Comments SLS in mirror for balance Manual Therapy Treatment Soft Tissue Mobilization pirifromis Body Location piriformis R Mobilization Type Rolling Joint Mobilizations innominate Joint L Direction ER FM sacrum Joint sacrum Direction L UPA FM hip Joint L hip Direction on axis ER FM Neuro Re-Education Treatment Other Activities PNF Details post depression and ant elevation Comments rhythmic initiation & combo of isotonics & alt reversals w/ LE PT-OP-T Assessment and Plan Start: 10/18/18 11:23 Freq: Status: Active Protocol: Document 11/02/18 14:31 [facility] (Rec: 11/02/18 15:37 [facility] [id number]) Physical Therapy Assessment Goals Running Impairment pt currently unable to run due to hip pain Senior Scrum Master Goal (LTG) Pt will be able to run for a 1 mile without symptoms LTG Duration 8 weeks HEP Impairment pt does not have a safe HEP to comply Senior Scrum Master Goal (LTG) Pt will comply to HEP independently with proper body mechanics to improve overall strength and injury prevention LEFS Impairment lowered LEFS score Nursing Home Goal (LTG) To increase pt's impairment level to 0% (currently 1-19% at 76) to improve quality of life LTG Duration 12 weeks Strength Impairment impaired abdominal and hip strength Nursing Home Goal (LTG) To improve pt's hip and abdominal strength by 1MMT to increase pt's trunk stability for lifting/ running activities LTG Duration 12 weeks Assessment Summary Assessment Pt was able to progress well with gait mechanics and work on exaggerated push off today with max cueing. She reported relief with treatment. Physical Therapy Plan Frequency and Duration Frequency of Treatment 2x/Week Duration of Treatment 12 Plan of Care Start Date 10/18/18 Plan of Care End Date 01/17/19 Next Visit Focus/Plan Next Note Type Treatment Note Next Visit Plan cont to work on gait mechanics & progress to faciliated gait ; work on core stability
--- NOTE | 2018-11-09 18:59 | PT.OTN ---
Current Diagnoses Other chronic pain (11/09/18) Pain in left hip (11/09/18) Other symptoms and signs involving the musculoskeletal system (11/09/18) Physical Therapy Treatment Note PT-OP-A Visit Information Start: 10/18/18 11:23 Freq: Status: Active Protocol: Document 11/09/18 18:54 LR (Rec: 11/09/18 18:58 [facility] [email or web address]) Out-Patient Physical Therapy Visit Information Visit Information Visit Type Treatment Note Visit Start Time 14:30 Visit Stop Time 15:10 Total Visit Minutes 40 Visit Number 6 Number of BLOCKER HEATED METAL FORMS Visits 0 PT-OP-B Current Condition Start: 10/18/18 11:23 Freq: Status: Active Protocol: Document 10/18/18 09:45 HH (Rec: 10/18/18 12:48 HH [email or web address]) Current Condition History of Current Condition Onset Date 2 years ago Current Complaints L hip pain, difficulty in running and lifting History of Current Condition Pt is a 43 yo female who has 4 procedure for her 4 children over the past 20 years. Pt stated her L hip pain symptoms started around 2years ago as a constant deep, achy and dull joint pain and occasional pinching sensation. Pain tends to get worse with inactivity/ increase physical work such as running and lifting but gets better with warm up and non strenuous movements. Pt thinks she has poor hip flexibility and poor abdominal strength. She noticed there's some separation between her abdominal muscle and bulging muscle mass on the side of belly button. Pt currently works out 3x/week and she notices her quads and hip muscles tend to get sore/ fatigue very often during abdominal exercises. She reports she has hernia at L lower quadrant of her abdominal area and it is very painful during coughing/ exertion. Pt tends to give pressure/compressure to that area during coughing and exertion. In addition, pt also c/o L jaw pain, R shoulder pain and R mid back pain since her 2nd children was born when she was 22yo. Pt stated she did x-ray and reports there's arthritis change and hopefully she doesnt need any surgery to address aforementioned symptoms. Treatment Goals Patient/Caregiver Goals 1. Avoid surgery for hernia 2. To increase hip mobility and abdominal strength 3. To be able to run / lift weights again as her workout routine. Prior Functional Status Baseline Function- ADL's Independent Baseline Function- Mobility Independent Current Functional Impairments (Reported) Functional Limitations- ADL's indepedent without difficulty Functional Limitations- Mobility/Gait indepedent without difficulty Functional Limitations- Recreation/ Unable to run / lift heavy Hobbies weight Personal Factors Other Personal Factors That May Effect L lower abdominal hernia Therapy/Recovery multiple procedure at lower abdominal PT-OP-C Subjective Start: 10/18/18 11:23 Freq: Status: Active Protocol: Document 11/09/18 18:54 LR (Rec: 11/09/18 18:58 LR [email or web address]) OP-PT Subjective Patient Comments Patient Comments Pt reports she was feeling good and did a bar crawl this weekend without issue but did a lot of errands and chores yesterday and is very sore and tight today. PT-OP-F Manual Assessment Start: 10/18/18 11:23 Freq: Status: Active Protocol: Document 10/18/18 09:45 HH (Rec: 10/18/18 12:48 [email or web address]) Manual Assessments Soft Tissue Assessment Soft Tissue Mobility Assessment Tenderness noted at L hip flexors and adductors region PT-OP-H Neuro Start: 10/18/18 11:23 Freq: Status: Active Protocol: Document 10/18/18 09:45 HH (Rec: 10/18/18 12:48 [email or web address]) Deep Tendon Reflex & Clonus Assessment Deep Tendon Reflex Right Achilles Deep Tendon Reflex 2+ Normal Left Achilles Deep Tendon Reflex 2+ Normal Right Patellar Deep Tendon Reflex 2+ Normal Left Patellar Deep Tendon Reflex 2+ Normal PT-OP-J Posture/Palpation/Skin Start: 10/18/18 11:23 Freq: Status: Active Protocol: Document 10/18/18 09:45 HH (Rec: 10/18/18 12:48 [email or web address]) Posture Evaluation Position Standing Evaluation View Posterior T-Spine Posture Flexible Scoliosis on (L) L-Spine Posture Flexible Scoliosis on (R) PT-OP-K Range of Motion Start: 10/18/18 11:23 Freq: Status: Active Protocol: Document 10/18/18 09:45 HH (Rec: 10/18/18 12:48 [email or web address]) Lumbar Spine Range of Motion Lumbar Spine Active Percentage Testing Position Standing Flexion 80 Extension 60 Rotation Left 60 Rotation Right 60 Lateral Flexion Left 60 Lateral Flexion Right 60 ROM Limitations Soft Tissue Tightness Hip Goniometric Range of Motion Hip Measured in Degrees Right Active Hip ROM WFL Yes Testing Position Supine Flexion w/Knee Flexed 142 Extension 20 Abduction 40 Left Active Hip ROM WFL Yes Testing Position Supine Flexion w/Knee Flexed 145 Extension 20 Abduction 35 PT-OP-L Special Tests Start: 10/18/18 11:23 Freq: Status: Active Protocol: Document 10/18/18 09:45 (Rec: 10/18/18 12:48 [email or web address]) Special Tests Lumbar Spine Special Tests Other- 1 Test Results +ve Comments noticeable separation between rectus abdominis Standing Flexion Test Results +ve Comments mild hump at L thoracic and R lumbar region Hip Special Tests ELVIA Test Results -ve bilaterally Scour Test Test Results +ve bilaterally Comments reports of slight discomfort bilaterally Viraj Test Results -ve bilaterally PT-OP-M Strength Start: 10/18/18 11:23 Freq: Status: Active Protocol: Document 10/18/18 09:45 (Rec: 10/18/18 12:48 [email or web address]) Trunk Strength Trunk Manual Muscle Testing Testing Position Supine Flexion 3+ Fair+ Comments requested pt to perform modified hollow hold with knee flexed. Pt uses upper abdominal and hip flexors primarily to maintain stability. Pt reports doesnt feel much at lower abs. Hip Strength Hip Manual Muscle Testing Right Flexion (L2) 3+ Fair+ Extension (S1) 3+ Fair+ Abduction 4+ Good+ Adduction 4+ Good+ Left Flexion (L2) 3+ Fair+ Extension (S1) 3+ Fair+ Abduction 4+ Good+ Adduction 4+ Good+ PT-OP-Q Treatments Start: 10/18/18 11:23 Freq: Status: Active Protocol: Document 11/09/18 18:54 [facility] (Rec: 11/09/18 18:58 [facility] [email or web address]) Therapeutic Exercises Standing Exercises lunges Standing Exercise Name walking w/march Side bilateral Reps/Minutes 50ft gait Standing Exercise Name press at wall Side bilateral Reps/Minutes 10 secx2 Manual Therapy Treatment Joint Mobilizations coccyx Joint coccyx Direction R UPA FM & R transverse FM Comments Edu was given re: location of coccxy and consent was given verbally for each time coccyx was palpated & mobilized innominate Joint L Direction ER FM sacrum Joint sacrum Direction L UPA FM hip Joint L hip Direction on axis ER FM PT-OP-T Assessment and Plan Start: 10/18/18 11:23 Freq: Status: Active Protocol: Document 11/09/18 18:54 [facility] (Rec: 11/09/18 18:58 [facility] [email or web address]) Physical Therapy Assessment Goals Running Impairment pt currently unable to run due to hip pain Wellness Trainer Goal (LTG) Pt will be able to run for a 1 mile without symptoms LTG Duration 8 weeks HEP Impairment pt does not have a safe HEP to comply Wellness Trainer Goal (LTG) Pt will comply to HEP independently with proper body mechanics to improve overall strength and injury prevention LEFS Impairment lowered LEFS score Skilled Nursing Goal (LTG) To increase pt's impairment level to 0% (currently 1-19% at 76) to improve quality of life LTG Duration 12 weeks Strength Impairment impaired abdominal and hip strength Wellness Trainer Goal (LTG) To improve pt's hip and abdominal strength by 1MMT to increase pt's trunk stability for lifting/ running activities LTG Duration 12 weeks Assessment Summary Assessment Pt had signifcant improvement in hip ER after STM, hip & innominate mobs but did not have full ROM. After coccyx mobilizations, pt had full ROM and reported good relief with the manual therapy today. Cueing required to faciliate PNF patterns with lunging and gait at wall. Physical Therapy Plan Frequency and Duration Frequency of Treatment 2x/Week Duration of Treatment 12 Plan of Care Start Date 10/18/18 Plan of Care End Date 01/17/19 Next Visit Focus/Plan Next Note Type Treatment Note Next Visit Plan faciliated gait & core exercises, assess further coccyx mobility as needed.
--- NOTE | 2018-11-14 18:21 | PT.OTN ---
Current Diagnoses Other chronic pain (11/14/18) Pain in left hip (11/14/18) Other symptoms and signs involving the musculoskeletal system (11/14/18) Physical Therapy Treatment Note PT-OP-A Visit Information Start: 10/18/18 11:23 Freq: Status: Active Protocol: Document 11/14/18 18:15 LR (Rec: 11/14/18 18:21 [facility] [email or web address]) Out-Patient Physical Therapy Visit Information Visit Information Visit Type Treatment Note Visit Start Time 13:45 Visit Stop Time 14:30 Total Visit Minutes 45 Visit Number 7 Number of ARTIFICIAL STONE SETTER Visits 0 PT-OP-B Current Condition Start: 10/18/18 11:23 Freq: Status: Active Protocol: Document 10/18/18 09:45 HH (Rec: 10/18/18 12:48 HH [email or web address]) Current Condition History of Current Condition Onset Date 2 years ago Current Complaints L hip pain, difficulty in running and lifting History of Current Condition Pt is a 43 yo female who has 4 procedure for her 4 children over the past 20 years. Pt stated her L hip pain symptoms started around 2years ago as a constant deep, achy and dull joint pain and occasional pinching sensation. Pain tends to get worse with inactivity/ increase physical work such as running and lifting but gets better with warm up and non strenuous movements. Pt thinks she has poor hip flexibility and poor abdominal strength. She noticed there's some separation between her abdominal muscle and bulging muscle mass on the side of belly button. Pt currently works out 3x/week and she notices her quads and hip muscles tend to get sore/ fatigue very often during abdominal exercises. She reports she has hernia at L lower quadrant of her abdominal area and it is very painful during coughing/ exertion. Pt tends to give pressure/compressure to that area during coughing and exertion. In addition, pt also c/o L jaw pain, R shoulder pain and R mid back pain since her 2nd children was born when she was 22yo. Pt stated she did x-ray and reports there's arthritis change and hopefully she doesnt need any surgery to address aforementioned symptoms. Treatment Goals Patient/Caregiver Goals 1. Avoid surgery for hernia 2. To increase hip mobility and abdominal strength 3. To be able to run / lift weights again as her workout routine. Prior Functional Status Baseline Function- ADL's Independent Baseline Function- Mobility Independent Current Functional Impairments (Reported) Functional Limitations- ADL's indepedent without difficulty Functional Limitations- Mobility/Gait indepedent without difficulty Functional Limitations- Recreation/ Unable to run / lift heavy Hobbies weight Personal Factors Other Personal Factors That May Effect L lower abdominal hernia Therapy/Recovery multiple procedure at lower abdominal PT-OP-C Subjective Start: 10/18/18 11:23 Freq: Status: Active Protocol: Document 11/14/18 18:15 [facility] (Rec: 11/14/18 18:21 [facility] [email or web address]) OP-PT Subjective Patient Comments Patient Comments Pt reports she has been feeling good since last sesion . Some tightness today after a lot of work this weekend and did a walk/run today. PT-OP-F Manual Assessment Start: 10/18/18 11:23 Freq: Status: Active Protocol: Document 10/18/18 09:45 HH (Rec: 10/18/18 12:48 [email or web address]) Manual Assessments Soft Tissue Assessment Soft Tissue Mobility Assessment Tenderness noted at L hip flexors and adductors region PT-OP-H Neuro Start: 10/18/18 11:23 Freq: Status: Active Protocol: Document 10/18/18 09:45 HH (Rec: 10/18/18 12:48 [email or web address]) Deep Tendon Reflex & Clonus Assessment Deep Tendon Reflex Right Achilles Deep Tendon Reflex 2+ Normal Left Achilles Deep Tendon Reflex 2+ Normal Right Patellar Deep Tendon Reflex 2+ Normal Left Patellar Deep Tendon Reflex 2+ Normal PT-OP-J Posture/Palpation/Skin Start: 10/18/18 11:23 Freq: Status: Active Protocol: Document 10/18/18 09:45 HH (Rec: 10/18/18 12:48 [email or web address]) Posture Evaluation Position Standing Evaluation View Posterior T-Spine Posture Flexible Scoliosis on (L) L-Spine Posture Flexible Scoliosis on (R) PT-OP-K Range of Motion Start: 10/18/18 11:23 Freq: Status: Active Protocol: Document 10/18/18 09:45 HH (Rec: 10/18/18 12:48 [email or web address]) Lumbar Spine Range of Motion Lumbar Spine Active Percentage Testing Position Standing Flexion 80 Extension 60 Rotation Left 60 Rotation Right 60 Lateral Flexion Left 60 Lateral Flexion Right 60 ROM Limitations Soft Tissue Tightness Hip Goniometric Range of Motion Hip Measured in Degrees Right Active Hip ROM WFL Yes Testing Position Supine Flexion w/Knee Flexed 142 Extension 20 Abduction 40 Left Active Hip ROM WFL Yes Testing Position Supine Flexion w/Knee Flexed 145 Extension 20 Abduction 35 PT-OP-L Special Tests Start: 10/18/18 11:23 Freq: Status: Active Protocol: Document 10/18/18 09:45 (Rec: 10/18/18 12:48 [email or web address]) Special Tests Lumbar Spine Special Tests Other- 1 Test Results +ve Comments noticeable separation between rectus abdominis Standing Flexion Test Results +ve Comments mild hump at L thoracic and R lumbar region Hip Special Tests ELVIA Test Results -ve bilaterally Scour Test Test Results +ve bilaterally Comments reports of slight discomfort bilaterally Viraj Test Results -ve bilaterally PT-OP-M Strength Start: 10/18/18 11:23 Freq: Status: Active Protocol: Document 10/18/18 09:45 (Rec: 10/18/18 12:48 [email or web address]) Trunk Strength Trunk Manual Muscle Testing Testing Position Supine Flexion 3+ Fair+ Comments requested pt to perform modified hollow hold with knee flexed. Pt uses upper abdominal and hip flexors primarily to maintain stability. Pt reports doesnt feel much at lower abs. Hip Strength Hip Manual Muscle Testing Right Flexion (L2) 3+ Fair+ Extension (S1) 3+ Fair+ Abduction 4+ Good+ Adduction 4+ Good+ Left Flexion (L2) 3+ Fair+ Extension (S1) 3+ Fair+ Abduction 4+ Good+ Adduction 4+ Good+ PT-OP-Q Treatments Start: 10/18/18 11:23 Freq: Status: Active Protocol: Document 11/14/18 18:15 [facility] (Rec: 11/14/18 18:21 [facility] [email or web address]) Therapeutic Exercises Supine Exercises foam roll Supine Exercise Name Habd, pivot prone, abd, flex Side bilateral Reps/Minutes 10 ea Comments also thoracic ext over roll abdominal series Supine Exercise Name flex & diagonal Side bilateral Reps/Minutes 30sec holds Therapeutic Activity Therapeutic Activity posture Name standing Comments cueing & tactile cueing Gait Training Gait Activity running Description asssessment & discussion Comments Working on improved arm swing Manual Therapy Treatment Soft Tissue Mobilization post Body Location along R coccyx Mobilization Type Rolling Sustained Pressure Comments w/hip ER pirifromis Body Location piriformis L & glutes Mobilization Type Rolling Joint Mobilizations coccyx Joint coccyx Direction L UPA FM & L transverse FM Comments Edu was given re: location of coccxy and consent was given verbally for each time coccyx was palpated & mobilized innominate Joint L Direction ER FM hip Joint L hip Direction on axis ER FM PT-OP-T Assessment and Plan Start: 10/18/18 11:23 Freq: Status: Active Protocol: Document 11/14/18 18:15 [facility] (Rec: 11/14/18 18:21 [facility] [email or web address]) Physical Therapy Assessment Goals Running Impairment pt currently unable to run due to hip pain Machine Wedger Goal (LTG) Pt will be able to run for a 1 mile without symptoms LTG Duration 8 weeks HEP Impairment pt does not have a safe HEP to comply Machine Wedger Goal (LTG) Pt will comply to HEP independently with proper body mechanics to improve overall strength and injury prevention LEFS Impairment lowered LEFS score Assisted Goal (LTG) To increase pt's impairment level to 0% (currently 1-19% at 76) to improve quality of life LTG Duration 12 weeks Strength Impairment impaired abdominal and hip strength Assisted Goal (LTG) To improve pt's hip and abdominal strength by 1MMT to increase pt's trunk stability for lifting/ running activities LTG Duration 12 weeks Assessment Summary Assessment Pt improved to full ER after treatment again today. LPM at start of session 07/16 B and LPM after 09/13. Pt cont to have weak core control and dec postural stability without cueing. Physical Therapy Plan Frequency and Duration Frequency of Treatment 2x/Week Duration of Treatment 12 Plan of Care Start Date 10/18/18 Plan of Care End Date 01/17/19 Next Visit Focus/Plan Next Note Type Treatment Note Next Visit Plan faciliated gait & core exercises, assess further coccyx mobility as needed, RA soft tissue mobilization
--- NOTE | 2018-11-29 18:22 | PT.OTN ---
Current Diagnoses Other chronic pain (11/29/18) Pain in left hip (11/29/18) Other symptoms and signs involving the musculoskeletal system (11/29/18) Physical Therapy Treatment Note PT-OP-A Visit Information Start: 10/18/18 11:23 Freq: Status: Active Protocol: Document 11/29/18 17:50 [facility] (Rec: 11/29/18 18:21 [facility] [email or web address]) Out-Patient Physical Therapy Visit Information Visit Information Visit Type Treatment Note Visit Start Time 16:00 Visit Stop Time 16:45 Total Visit Minutes 45 Visit Number 8 Number of RETAIL [employer]ER Visits 0 PT-OP-B Current Condition Start: 10/18/18 11:23 Freq: Status: Active Protocol: Document 10/18/18 09:45 HH (Rec: 10/18/18 12:48 HH [email or web address]) Current Condition History of Current Condition Onset Date 2 years ago Current Complaints L hip pain, difficulty in running and lifting History of Current Condition Pt is a 43 yo female who has 4 procedure for her 4 children over the past 20 years. Pt stated her L hip pain symptoms started around 2years ago as a constant deep, achy and dull joint pain and occasional pinching sensation. Pain tends to get worse with inactivity/ increase physical work such as running and lifting but gets better with warm up and non strenuous movements. Pt thinks she has poor hip flexibility and poor abdominal strength. She noticed there's some separation between her abdominal muscle and bulging muscle mass on the side of belly button. Pt currently works out 3x/week and she notices her quads and hip muscles tend to get sore/ fatigue very often during abdominal exercises. She reports she has hernia at L lower quadrant of her abdominal area and it is very painful during coughing/ exertion. Pt tends to give pressure/compressure to that area during coughing and exertion. In addition, pt also c/o L jaw pain, R shoulder pain and R mid back pain since her 2nd children was born when she was 22yo. Pt stated she did x-ray and reports there's arthritis change and hopefully she doesnt need any surgery to address aforementioned symptoms. Treatment Goals Patient/Caregiver Goals 1. Avoid surgery for hernia 2. To increase hip mobility and abdominal strength 3. To be able to run / lift weights again as her workout routine. Prior Functional Status Baseline Function- ADL's Independent Baseline Function- Mobility Independent Current Functional Impairments (Reported) Functional Limitations- ADL's indepedent without difficulty Functional Limitations- Mobility/Gait indepedent without difficulty Functional Limitations- Recreation/ Unable to run / lift heavy Hobbies weight Personal Factors Other Personal Factors That May Effect L lower abdominal hernia Therapy/Recovery multiple procedure at lower abdominal PT-OP-C Subjective Start: 10/18/18 11:23 Freq: Status: Active Protocol: Document 11/29/18 17:50 [facility] (Rec: 11/29/18 18:22 [facility] [email or web address]) OP-PT Subjective Patient Comments Patient Comments Pt reports she was doing well with pain until she weeded yesterday. PT-OP-F Manual Assessment Start: 10/18/18 11:23 Freq: Status: Active Protocol: Document 10/18/18 09:45 HH (Rec: 10/18/18 12:48 HH [email or web address]) Manual Assessments Soft Tissue Assessment Soft Tissue Mobility Assessment Tenderness noted at L hip flexors and adductors region PT-OP-H Neuro Start: 10/18/18 11:23 Freq: Status: Active Protocol: Document 10/18/18 09:45 HH (Rec: 10/18/18 12:48 HH [email or web address]) Deep Tendon Reflex & Clonus Assessment Deep Tendon Reflex Right Achilles Deep Tendon Reflex 2+ Normal Left Achilles Deep Tendon Reflex 2+ Normal Right Patellar Deep Tendon Reflex 2+ Normal Left Patellar Deep Tendon Reflex 2+ Normal PT-OP-J Posture/Palpation/Skin Start: 10/18/18 11:23 Freq: Status: Active Protocol: Document 10/18/18 09:45 HH (Rec: 10/18/18 12:48 [email or web address]) Posture Evaluation Position Standing Evaluation View Posterior T-Spine Posture Flexible Scoliosis on (L) L-Spine Posture Flexible Scoliosis on (R) PT-OP-K Range of Motion Start: 10/18/18 11:23 Freq: Status: Active Protocol: Document 10/18/18 09:45 HH (Rec: 10/18/18 12:48 HH [email or web address]) Lumbar Spine Range of Motion Lumbar Spine Active Percentage Testing Position Standing Flexion 80 Extension 60 Rotation Left 60 Rotation Right 60 Lateral Flexion Left 60 Lateral Flexion Right 60 ROM Limitations Soft Tissue Tightness Hip Goniometric Range of Motion Hip Measured in Degrees Right Active Hip ROM WFL Yes Testing Position Supine Flexion w/Knee Flexed 142 Extension 20 Abduction 40 Left Active Hip ROM WFL Yes Testing Position Supine Flexion w/Knee Flexed 145 Extension 20 Abduction 35 PT-OP-L Special Tests Start: 10/18/18 11:23 Freq: Status: Active Protocol: Document 10/18/18 09:45 HH (Rec: 10/18/18 12:48 HH [email or web address]) Special Tests Lumbar Spine Special Tests Other- 1 Test Results +ve Comments noticeable separation between rectus abdominis Standing Flexion Test Results +ve Comments mild hump at L thoracic and R lumbar region Hip Special Tests ELVIA Test Results -ve bilaterally Scour Test Test Results +ve bilaterally Comments reports of slight discomfort bilaterally Viraj Test Results -ve bilaterally PT-OP-M Strength Start: 10/18/18 11:23 Freq: Status: Active Protocol: Document 10/18/18 09:45 HH (Rec: 10/18/18 12:48 HH [email or web address]) Trunk Strength Trunk Manual Muscle Testing Testing Position Supine Flexion 3+ Fair+ Comments requested pt to perform modified hollow hold with knee flexed. Pt uses upper abdominal and hip flexors primarily to maintain stability. Pt reports doesnt feel much at lower abs. Hip Strength Hip Manual Muscle Testing Right Flexion (L2) 3+ Fair+ Extension (S1) 3+ Fair+ Abduction 4+ Good+ Adduction 4+ Good+ Left Flexion (L2) 3+ Fair+ Extension (S1) 3+ Fair+ Abduction 4+ Good+ Adduction 4+ Good+ PT-OP-Q Treatments Start: 10/18/18 11:23 Freq: Status: Active Protocol: Document 11/29/18 17:50 [facility] (Rec: 11/29/18 18:21 [facility] [email or web address]) Gait Training Gait Activity bounding Description bounding walking Description assessment & dicussion Comments worked on push off Manual Therapy Treatment Soft Tissue Mobilization HS Body Location HS Mobilization Type Rolling Sustained Pressure Comments w/knee ext pirifromis Body Location piriformis L & glutes Mobilization Type Rolling Joint Mobilizations hip Joint L hip Direction on axis ER FM Neuro Re-Education Treatment Other Activities PNF Details post depression and ant elevation Comments rhythmic initiation & combo of isotonics & alt reversals w/ LE B Self-Care/Home Management Treatment Education Other Education edu on gardening positions PT-OP-T Assessment and Plan Start: 10/18/18 11:23 Freq: Status: Active Protocol: Document 11/29/18 17:50 [facility] (Rec: 11/29/18 18:21 [facility] [email or web address]) Physical Therapy Assessment Goals Running Impairment pt currently unable to run due to hip pain Prison Goal (LTG) Pt will be able to run for a 1 mile without symptoms LTG Duration 8 weeks HEP Impairment pt does not have a safe HEP to comply [employer] Goal (LTG) Pt will comply to HEP independently with proper body mechanics to improve overall strength and injury prevention LEFS Impairment lowered LEFS score [employer] Goal (LTG) To increase pt's impairment level to 0% (currently 1-19% at 76) to improve quality of life LTG Duration 12 weeks Strength Impairment impaired abdominal and hip strength Prison Goal (LTG) To improve pt's hip and abdominal strength by 1MMT to increase pt's trunk stability for lifting/ running activities LTG Duration 12 weeks Assessment Summary Assessment Pt had significantly dec pain with treatment today. Improved walking pattern today and after cueing improved running. Physical Therapy Plan Frequency and Duration Frequency of Treatment 2x/Week Duration of Treatment 12 Plan of Care Start Date 10/18/18 Plan of Care End Date 01/17/19 Next Visit Focus/Plan Next Note Type Treatment Note Next Visit Plan cont to facilitate core.
--- NOTE | 2018-12-13 15:03 | PT.OTN ---
Current Diagnoses Other chronic pain (12/13/18) Pain in left hip (12/13/18) Other symptoms and signs involving the musculoskeletal system (12/13/18) Physical Therapy Treatment Note PT-OP-A Visit Information Start: 10/18/18 11:23 Freq: Status: Active Protocol: Document 12/13/18 13:44 LR (Rec: 12/13/18 15:03 [facility] [id number]) Out-Patient Physical Therapy Visit Information Visit Information Visit Type Treatment Note Visit Start Time 13:45 Visit Stop Time 14:25 Total Visit Minutes 40 Visit Number 9 Number of AFFILIATE MARKETING SPECIALIST Visits 0 PT-OP-B Current Condition Start: 10/18/18 11:23 Freq: Status: Active Protocol: Document 10/18/18 09:45 HH (Rec: 10/18/18 12:48 HH [email or web address]) Current Condition History of Current Condition Onset Date 2 years ago Current Complaints L hip pain, difficulty in running and lifting History of Current Condition Pt is a 43 yo female who has 4 procedure for her 4 children over the past 20 years. Pt stated her L hip pain symptoms started around 2years ago as a constant deep, achy and dull joint pain and occasional pinching sensation. Pain tends to get worse with inactivity/ increase physical work such as running and lifting but gets better with warm up and non strenuous movements. Pt thinks she has poor hip flexibility and poor abdominal strength. She noticed there's some separation between her abdominal muscle and bulging muscle mass on the side of belly button. Pt currently works out 3x/week and she notices her quads and hip muscles tend to get sore/ fatigue very often during abdominal exercises. She reports she has hernia at L lower quadrant of her abdominal area and it is very painful during coughing/ exertion. Pt tends to give pressure/compressure to that area during coughing and exertion. In addition, pt also c/o L jaw pain, R shoulder pain and R mid back pain since her 2nd children was born when she was 22yo. Pt stated she did x-ray and reports there's arthritis change and hopefully she doesnt need any surgery to address aforementioned symptoms. Treatment Goals Patient/Caregiver Goals 1. Avoid surgery for hernia 2. To increase hip mobility and abdominal strength 3. To be able to run / lift weights again as her workout routine. Prior Functional Status Baseline Function- ADL's Independent Baseline Function- Mobility Independent Current Functional Impairments (Reported) Functional Limitations- ADL's indepedent without difficulty Functional Limitations- Mobility/Gait indepedent without difficulty Functional Limitations- Recreation/ Unable to run / lift heavy Hobbies weight Personal Factors Other Personal Factors That May Effect L lower abdominal hernia Therapy/Recovery multiple procedure at lower abdominal PT-OP-C Subjective Start: 10/18/18 11:23 Freq: Status: Active Protocol: Document 12/13/18 13:44 LR (Rec: 12/13/18 15:03 [facility] [id number]) OP-PT Subjective Patient Comments Patient Comments Pt reports she has some hip tighness but pain is no longer constant. Patient Reported Progress Improving PT-OP-F Manual Assessment Start: 10/18/18 11:23 Freq: Status: Active Protocol: Document 10/18/18 09:45 HH (Rec: 10/18/18 12:48 HH [email or web address]) Manual Assessments Soft Tissue Assessment Soft Tissue Mobility Assessment Tenderness noted at L hip flexors and adductors region PT-OP-H Neuro Start: 10/18/18 11:23 Freq: Status: Active Protocol: Document 10/18/18 09:45 HH (Rec: 10/18/18 12:48 HH [email or web address]) Deep Tendon Reflex & Clonus Assessment Deep Tendon Reflex Right Achilles Deep Tendon Reflex 2+ Normal Left Achilles Deep Tendon Reflex 2+ Normal Right Patellar Deep Tendon Reflex 2+ Normal Left Patellar Deep Tendon Reflex 2+ Normal PT-OP-J Posture/Palpation/Skin Start: 10/18/18 11:23 Freq: Status: Active Protocol: Document 10/18/18 09:45 HH (Rec: 10/18/18 12:48 [email or web address]) Posture Evaluation Position Standing Evaluation View Posterior T-Spine Posture Flexible Scoliosis on (L) L-Spine Posture Flexible Scoliosis on (R) PT-OP-K Range of Motion Start: 10/18/18 11:23 Freq: Status: Active Protocol: Document 10/18/18 09:45 HH (Rec: 10/18/18 12:48 HH [email or web address]) Lumbar Spine Range of Motion Lumbar Spine Active Percentage Testing Position Standing Flexion 80 Extension 60 Rotation Left 60 Rotation Right 60 Lateral Flexion Left 60 Lateral Flexion Right 60 ROM Limitations Soft Tissue Tightness Hip Goniometric Range of Motion Hip Measured in Degrees Right Active Hip ROM WFL Yes Testing Position Supine Flexion w/Knee Flexed 142 Extension 20 Abduction 40 Left Active Hip ROM WFL Yes Testing Position Supine Flexion w/Knee Flexed 145 Extension 20 Abduction 35 PT-OP-L Special Tests Start: 10/18/18 11:23 Freq: Status: Active Protocol: Document 10/18/18 09:45 (Rec: 10/18/18 12:48 [email or web address]) Special Tests Lumbar Spine Special Tests Other- 1 Test Results +ve Comments noticeable separation between rectus abdominis Standing Flexion Test Results +ve Comments mild hump at L thoracic and R lumbar region Hip Special Tests ELVIA Test Results -ve bilaterally Scour Test Test Results +ve bilaterally Comments reports of slight discomfort bilaterally Viraj Test Results -ve bilaterally PT-OP-M Strength Start: 10/18/18 11:23 Freq: Status: Active Protocol: Document 10/18/18 09:45 HH (Rec: 10/18/18 12:48 HH [email or web address]) Trunk Strength Trunk Manual Muscle Testing Testing Position Supine Flexion 3+ Fair+ Comments requested pt to perform modified hollow hold with knee flexed. Pt uses upper abdominal and hip flexors primarily to maintain stability. Pt reports doesnt feel much at lower abs. Hip Strength Hip Manual Muscle Testing Right Flexion (L2) 3+ Fair+ Extension (S1) 3+ Fair+ Abduction 4+ Good+ Adduction 4+ Good+ Left Flexion (L2) 3+ Fair+ Extension (S1) 3+ Fair+ Abduction 4+ Good+ Adduction 4+ Good+ PT-OP-Q Treatments Start: 10/18/18 11:23 Freq: Status: Active Protocol: Document 12/13/18 13:44 [facility] (Rec: 12/13/18 15:03 [facility] [id number]) Therapeutic Exercises Supine Exercises march Supine Exercise Name march porggressed to scissors Side bilateral Reps/Minutes 15 Prone Exercises plank Prone Exercise Name plank Side bilateral Reps/Minutes 30sec x2 Other Exercises quadruped Other Exercise Name alt hip ext progress to alt/ opp arm/leg lift Side bilateral Reps/Minutes 10 Manual Therapy Treatment Soft Tissue Mobilization pirifromis Body Location piriformis L & glutes Mobilization Type Rolling Joint Mobilizations sacrum Joint sacrum Direction L UPA FM PT-OP-T Assessment and Plan Start: 10/18/18 11:23 Freq: Status: Active Protocol: Document 12/13/18 13:44 [facility] (Rec: 12/13/18 15:03 [facility] [id number]) Physical Therapy Assessment Goals Running Impairment pt currently unable to run due to hip pain Network Technical Analyst Goal (LTG) Pt will be able to run for a 1 mile without symptoms LTG Duration 8 weeks HEP Impairment pt does not have a safe HEP to comply Network Technical Analyst Goal (LTG) Pt will comply to HEP independently with proper body mechanics to improve overall strength and injury prevention LEFS Impairment lowered LEFS score Mcfp Goal (LTG) To increase pt's impairment level to 0% (currently 1-19% at 76) to improve quality of life LTG Duration 12 weeks Strength Impairment impaired abdominal and hip strength Mcfp Goal (LTG) To improve pt's hip and abdominal strength by 1MMT to increase pt's trunk stability for lifting/ running activities LTG Duration 12 weeks Assessment Summary Assessment Improved ability to tolerate core exercises with cueing for neutral positioning. She had improved pain after treatment. Physical Therapy Plan Frequency and Duration Frequency of Treatment 2x/Week Duration of Treatment 12 Plan of Care Start Date 10/18/18 Plan of Care End Date 01/17/19 Next Visit Focus/Plan Next Note Type Treatment Note Next Visit Plan cont to facilitate core.
--- NOTE | 2019-02-15 10:17 | PT.OTN ---
Current Diagnoses Other chronic pain (02/15/19) Pain in left hip (02/15/19) Other symptoms and signs involving the musculoskeletal system (02/15/19) Physical Therapy Treatment Note PT-OP-A Visit Information Start: 10/18/18 11:23 Freq: Status: Active Protocol: Document 02/15/19 10:13 [facility] (Rec: 02/15/19 10:17 [facility] [id number]) Out-Patient Physical Therapy Visit Information Visit Information Visit Type Progress Note Visit Start Time 08:15 Visit Stop Time 09:00 Total Visit Minutes 45 Visit Number 10 Number of COATER HELPER Visits 0 PT-OP-B Current Condition Start: 10/18/18 11:23 Freq: Status: Active Protocol: Document 10/18/18 09:45 HH (Rec: 10/18/18 12:48 HH [email or web address]) Current Condition History of Current Condition Onset Date 2 years ago Current Complaints L hip pain, difficulty in running and lifting History of Current Condition Pt is a 43 yo female who has 4 procedure for her 4 children over the past 20 years. Pt stated her L hip pain symptoms started around 2years ago as a constant deep, achy and dull joint pain and occasional pinching sensation. Pain tends to get worse with inactivity/ increase physical work such as running and lifting but gets better with warm up and non strenuous movements. Pt thinks she has poor hip flexibility and poor abdominal strength. She noticed there's some separation between her abdominal muscle and bulging muscle mass on the side of belly button. Pt currently works out 3x/week and she notices her quads and hip muscles tend to get sore/ fatigue very often during abdominal exercises. She reports she has hernia at L lower quadrant of her abdominal area and it is very painful during coughing/ exertion. Pt tends to give pressure/compressure to that area during coughing and exertion. In addition, pt also c/o L jaw pain, R shoulder pain and R mid back pain since her 2nd children was born when she was 22yo. Pt stated she did x-ray and reports there's arthritis change and hopefully she doesnt need any surgery to address aforementioned symptoms. Treatment Goals Patient/Caregiver Goals 1. Avoid surgery for hernia 2. To increase hip mobility and abdominal strength 3. To be able to run / lift weights again as her workout routine. Prior Functional Status Baseline Function- ADL's Independent Baseline Function- Mobility Independent Current Functional Impairments (Reported) Functional Limitations- ADL's indepedent without difficulty Functional Limitations- Mobility/Gait indepedent without difficulty Functional Limitations- Recreation/ Unable to run / lift heavy Hobbies weight Personal Factors Other Personal Factors That May Effect L lower abdominal hernia Therapy/Recovery multiple procedure at lower abdominal PT-OP-C Subjective Start: 10/18/18 11:23 Freq: Status: Active Protocol: Document 02/15/19 10:13 [facility] (Rec: 02/15/19 10:17 [facility] [id number]) OP-PT Subjective Patient Comments Patient Comments Pt reports she was overall doing well until last weekend when she was walking and assisting her son with his bike. The next am she had inc pain into post L hip and pain down LLE and L knee pain. She notes she has not been doing exercsies since moving and losing her papers. PT-OP-F Manual Assessment Start: 10/18/18 11:23 Freq: Status: Active Protocol: Document 10/18/18 09:45 HH (Rec: 10/18/18 12:48 [email or web address]) Manual Assessments Soft Tissue Assessment Soft Tissue Mobility Assessment Tenderness noted at L hip flexors and adductors region PT-OP-H Neuro Start: 10/18/18 11:23 Freq: Status: Active Protocol: Document 10/18/18 09:45 HH (Rec: 10/18/18 12:48 [email or web address]) Deep Tendon Reflex & Clonus Assessment Deep Tendon Reflex Right Achilles Deep Tendon Reflex 2+ Normal Left Achilles Deep Tendon Reflex 2+ Normal Right Patellar Deep Tendon Reflex 2+ Normal Left Patellar Deep Tendon Reflex 2+ Normal PT-OP-J Posture/Palpation/Skin Start: 10/18/18 11:23 Freq: Status: Active Protocol: Document 02/15/19 08:15 [facility] (Rec: 02/15/19 09:16 [facility] [id number]) Posture Evaluation Maria Ines Postural Classification System Maria Ines Postural Classifications Posterior/Posterior Vertebral Compression Test 0 Elbow Flexion Test 3 Lumbar Protective Mechanism Left AP 1 Lumbar Protective Mechanism Right AP 2 Lumbar Protective Mechanism Left PA 5 Lumbar Protective Mechanism Right PA 1 PT-OP-K Range of Motion Start: 10/18/18 11:23 Freq: Status: Active Protocol: Document 10/18/18 09:45 HH (Rec: 10/18/18 12:48 [email or web address]) Lumbar Spine Range of Motion Lumbar Spine Active Percentage Testing Position Standing Flexion 80 Extension 60 Rotation Left 60 Rotation Right 60 Lateral Flexion Left 60 Lateral Flexion Right 60 ROM Limitations Soft Tissue Tightness Hip Goniometric Range of Motion Hip Right Active Hip ROM WFL Yes Testing Position Supine Flexion w/Knee Flexed 142 Extension 20 Abduction 40 Left Active Hip ROM WFL Yes Testing Position Supine Flexion w/Knee Flexed 145 Extension 20 Abduction 35 PT-OP-L Special Tests Start: 10/18/18 11:23 Freq: Status: Active Protocol: Document 10/18/18 09:45 HH (Rec: 10/18/18 12:48 [email or web address]) Special Tests Lumbar Spine Special Tests Other- 1 Test Results +ve Comments noticeable separation between rectus abdominis Standing Flexion Test Results +ve Comments mild hump at L thoracic and R lumbar region Hip Special Tests ELVIA Test Results -ve bilaterally Scour Test Test Results +ve bilaterally Comments reports of slight discomfort bilaterally Viraj Test Results -ve bilaterally PT-OP-M Strength Start: 10/18/18 11:23 Freq: Status: Active Protocol: Document 02/15/19 08:15 [facility] (Rec: 02/15/19 09:16 [facility] [id number]) Hip Strength Hip Manual Muscle Testing Right Flexion (L2) 3+ Fair+ Extension (S1) 4 Good Abduction 5 Normal Adduction 5 Normal External Rotation 5 Normal Internal Rotation 5 Normal Left Flexion (L2) 4- Good- Extension (S1) 4 Good Abduction 4 Good Adduction 4 Good External Rotation 4 Good Internal Rotation 4 Good Knee Strength Knee Manual Muscle Testing Right Flexion (S2) 5 Normal Extension (L3) 5 Normal Left Flexion (S2) 4+ Good+ Extension (L3) 4+ Good+ Comments pain w/flex Ankle/Foot Strength Ankle and Foot Manual Muscle Testing Right Dorsiflexion (L4) 5 Normal Plantarflexion (S1) 5 Normal Left Dorsiflexion (L4) 5 Normal Plantarflexion (S1) 5 Normal PT-OP-Q Treatments Start: 10/18/18 11:23 Freq: Status: Active Protocol: Document 02/15/19 10:13 [facility] (Rec: 02/15/19 10:17 [facility] [id number]) Therapeutic Exercises Supine Exercises stretch Supine Exercise Name piriformis stretch & active HS stretch Side left Reps/Minutes 30 sec/ 10 reps of HS active abdominal series Supine Exercise Name flex & diagonal Side bilateral Reps/Minutes 30sec holds Standing Exercises stretch Standing Exercise Name hip flexor stretch Side bilateral Reps/Minutes 30 sec Therapeutic Activity Therapeutic Activity posture Name standing Comments cueing & tactile cueing; improved VCT to 4/5 Manual Therapy Treatment Soft Tissue Mobilization pirifromis Body Location piriformis L & glutes Mobilization Type Rolling Body Position Prone Comments w/hip IR/ER Joint Mobilizations innominate Joint L Direction caudal FM sacrum Joint sacrum Direction L UPA & caudal glidingFM hip Joint L hip Direction on axis ER FM PT-OP-T Assessment and Plan Start: 10/18/18 11:23 Freq: Status: Active Protocol: Document 02/15/19 08:15 [facility] (Rec: 02/15/19 09:16 [facility] [id number]) Physical Therapy Assessment Goals Running Impairment pt currently unable to run due to hip pain Systems Programmer Analyst Goal (LTG) Pt will be able to run for a 1 mile without symptoms LTG Duration 8 weeks HEP Impairment pt does not have a safe HEP to comply Mcfp Goal (LTG) Pt will comply to HEP independently with proper body mechanics to improve overall strength and injury prevention LEFS Impairment lowered LEFS score Mcfp Goal (LTG) To increase pt's impairment level to 0% (currently 1-19% at 76) to improve quality of life LTG Duration 12 weeks Strength Impairment impaired abdominal and hip strength Systems Programmer Analyst Goal (LTG) To improve pt's hip and abdominal strength by 1MMT to increase pt's trunk stability for lifting/ running activities LTG Duration 12 weeks Assessment Summary Assessment Pt was making excellent improvement when consistantly seeing PT and had not had pain for a while with her working out and doing daily activities , but had not done a full run just walk/runs. Pt was walking while her kids were biking and her 6 year old required assistance on hisbike a few times where she had to lean to stabilize and push him and the next day pt reported having knee pain when she bends her knee and pain from her hip down the post aspect of her HS. She appears to have some neural tension and also some inflmmation in knee. Today inc tightness in hip compared to the last time pt was in. Plan to get pt more compliant on HEP since she has not been as compliant since moving and losing her papers. She was advancing well with therapy prior to having break in care d/t inc work schedule & child activities.
--- NOTE | 2019-02-15 10:19 | PT.OPPOC ---
Current Diagnoses Other chronic pain (02/15/19) Pain in left hip (02/15/19) Other symptoms and signs involving the musculoskeletal system (02/15/19) Provider Visit Care Team Role Provider Type Indu Kim PA-C Attending Provider Advanced Bag Builder Primary Care Provider Specialty: Medical Address: [address] [place] [address], [id number] Email: [email or web address] Plan Of Care PT-OP-T Assessment and Plan Start: 10/18/18 11:23 Freq: Status: Active Protocol: Document 02/15/19 08:15 [facility] (Rec: 02/15/19 09:16 [facility] [id number]) Physical Therapy Assessment Goals Running Impairment pt currently unable to run due to hip pain Broke Beater Goal (LTG) Pt will be able to run for a 1 mile without symptoms LTG Duration 8 weeks HEP Impairment pt does not have a safe HEP to comply Jail Goal (LTG) Pt will comply to HEP independently with proper body mechanics to improve overall strength and injury prevention LEFS Impairment lowered LEFS score Broke Beater Goal (LTG) To increase pt's impairment level to 0% (currently 1-19% at 76) to improve quality of life LTG Duration 12 weeks Strength Impairment impaired abdominal and hip strength Jail Goal (LTG) To improve pt's hip and abdominal strength by 1MMT to increase pt's trunk stability for lifting/ running activities LTG Duration 12 weeks Assessment Summary Assessment Pt was making excellent improvement when consistantly seeing PT and had not had pain for a while with her working out and doing daily activities , but had not done a full run just walk/runs. Pt was walking while her kids were biking and her 6 year old required assistance on hisbike a few times where she had to lean to stabilize and push him and the next day pt reported having knee pain when she bends her knee and pain from her hip down the post aspect of her HS. She appears to have some neural tension and also some inflmmation in knee. Today inc tightness in hip compared to the last time pt was in. Plan to get pt more compliant on HEP since she has not been as compliant since moving and losing her papers. She was advancing well with therapy prior to having break in care d/t inc work schedule & child activities. Physical Therapy Plan Frequency and Duration Frequency of Treatment 1-2x/week Duration of Treatment 2 months Plan of Care Start Date 02/15/19 Plan of Care End Date 04/17/19 Therapeutic Interventions Therapeutic Interventions Aquatic Therapy Balance Training Gait Training Home Exercise Program Joint Mobilizations Manual Therapy Patient/Caregiver Education Self-Care/Home Management Soft Tissue Mobilization Taping Therapeutic Activities Therapeutic Exercises Modalities Cold Pack/Ice Massage Electric Stimulation Hot Packs Infrared Therapy Traction- Mechanical Ultrasound Next Visit Focus/Plan Next Note Type Treatment Note Next Visit Plan hip and pelvis mobility Plan of Care Dates Plan of Care Start Date 02/15/19 Plan of Care End Date 04/17/19 Please Sign and Return: I have reviewed this Plan of Care and certify that the skilled therapy services above are required to meet the patient?s needs. Physician Signature Date Printed Name and Credentials Clinical Instructor Signature Printed Name and Credentials
--- NOTE | 2019-03-01 16:44 | PT.OTN ---
Current Diagnoses Other chronic pain (03/01/19) Pain in left hip (03/01/19) Other symptoms and signs involving the musculoskeletal system (03/01/19) Physical Therapy Treatment Note PT-OP-A Visit Information Start: 10/18/18 11:23 Freq: Status: Active Protocol: Document 03/01/19 15:56 [facility] (Rec: 03/01/19 16:43 [facility] [id number]) Out-Patient Physical Therapy Visit Information Visit Information Visit Type Treatment Note Visit Start Time 13:45 Visit Stop Time 14:25 Total Visit Minutes 45 Visit Number 11 Number of RN INTERNAL MEDICINE Visits 0 PT-OP-B Current Condition Start: 10/18/18 11:23 Freq: Status: Active Protocol: Document 10/18/18 09:45 HH (Rec: 10/18/18 12:48 HH [email or web address]) Current Condition History of Current Condition Onset Date 2 years ago Current Complaints L hip pain, difficulty in running and lifting History of Current Condition Pt is a 43 yo female who has 4 procedure for her 4 children over the past 20 years. Pt stated her L hip pain symptoms started around 2years ago as a constant deep, achy and dull joint pain and occasional pinching sensation. Pain tends to get worse with inactivity/ increase physical work such as running and lifting but gets better with warm up and non strenuous movements. Pt thinks she has poor hip flexibility and poor abdominal strength. She noticed there's some separation between her abdominal muscle and bulging muscle mass on the side of belly button. Pt currently works out 3x/week and she notices her quads and hip muscles tend to get sore/ fatigue very often during abdominal exercises. She reports she has hernia at L lower quadrant of her abdominal area and it is very painful during coughing/ exertion. Pt tends to give pressure/compressure to that area during coughing and exertion. In addition, pt also c/o L jaw pain, R shoulder pain and R mid back pain since her 2nd children was born when she was 22yo. Pt stated she did x-ray and reports there's arthritis change and hopefully she doesnt need any surgery to address aforementioned symptoms. Treatment Goals Patient/Caregiver Goals 1. Avoid surgery for hernia 2. To increase hip mobility and abdominal strength 3. To be able to run / lift weights again as her workout routine. Prior Functional Status Baseline Function- ADL's Independent Baseline Function- Mobility Independent Current Functional Impairments (Reported) Functional Limitations- ADL's indepedent without difficulty Functional Limitations- Mobility/Gait indepedent without difficulty Functional Limitations- Recreation/ Unable to run / lift heavy Hobbies weight Personal Factors Other Personal Factors That May Effect L lower abdominal hernia Therapy/Recovery multiple procedure at lower abdominal PT-OP-C Subjective Start: 10/18/18 11:23 Freq: Status: Active Protocol: Document 03/01/19 15:56 [facility] (Rec: 03/01/19 16:43 [facility] [id number]) OP-PT Subjective Patient Comments Patient Comments Pt reports she hasnt had a lot of time to do her exercises consistantly but has stretched some. PT-OP-F Manual Assessment Start: 10/18/18 11:23 Freq: Status: Active Protocol: Document 10/18/18 09:45 (Rec: 10/18/18 12:48 HH [email or web address]) Manual Assessments Soft Tissue Assessment Soft Tissue Mobility Assessment Tenderness noted at L hip flexors and adductors region PT-OP-H Neuro Start: 10/18/18 11:23 Freq: Status: Active Protocol: Document 10/18/18 09:45 HH (Rec: 10/18/18 12:48 HH [email or web address]) Deep Tendon Reflex & Clonus Assessment Deep Tendon Reflex Right Achilles Deep Tendon Reflex 2+ Normal Left Achilles Deep Tendon Reflex 2+ Normal Right Patellar Deep Tendon Reflex 2+ Normal Left Patellar Deep Tendon Reflex 2+ Normal PT-OP-J Posture/Palpation/Skin Start: 10/18/18 11:23 Freq: Status: Active Protocol: Document 02/15/19 08:15 [facility] (Rec: 02/15/19 09:16 [facility] [id number]) Posture Evaluation [facility] Postural Classification System [facility] Postural Classifications Posterior/Posterior Vertebral Compression Test 0 Elbow Flexion Test 3 Lumbar Protective Mechanism Left AP 1 Lumbar Protective Mechanism Right AP 2 Lumbar Protective Mechanism Left PA 5 Lumbar Protective Mechanism Right PA 1 PT-OP-K Range of Motion Start: 10/18/18 11:23 Freq: Status: Active Protocol: Document 10/18/18 09:45 HH (Rec: 10/18/18 12:48 HH [email or web address]) Lumbar Spine Range of Motion Lumbar Spine Active Percentage Testing Position Standing Flexion 80 Extension 60 Rotation Left 60 Rotation Right 60 Lateral Flexion Left 60 Lateral Flexion Right 60 ROM Limitations Soft Tissue Tightness Hip Goniometric Range of Motion Hip Right Active Hip ROM WFL Yes Testing Position Supine Flexion w/Knee Flexed 142 Extension 20 Abduction 40 Left Active Hip ROM WFL Yes Testing Position Supine Flexion w/Knee Flexed 145 Extension 20 Abduction 35 PT-OP-L Special Tests Start: 10/18/18 11:23 Freq: Status: Active Protocol: Document 10/18/18 09:45 (Rec: 10/18/18 12:48 [email or web address]) Special Tests Lumbar Spine Special Tests Other- 1 Test Results +ve Comments noticeable separation between rectus abdominis Standing Flexion Test Results +ve Comments mild hump at L thoracic and R lumbar region Hip Special Tests ELVIA Test Results -ve bilaterally Scour Test Test Results +ve bilaterally Comments reports of slight discomfort bilaterally Viraj Test Results -ve bilaterally PT-OP-M Strength Start: 10/18/18 11:23 Freq: Status: Active Protocol: Document 02/15/19 08:15 [facility] (Rec: 02/15/19 09:16 [facility] [id number]) Hip Strength Hip Manual Muscle Testing Right Flexion (L2) 3+ Fair+ Extension (S1) 4 Good Abduction 5 Normal Adduction 5 Normal External Rotation 5 Normal Internal Rotation 5 Normal Left Flexion (L2) 4- Good- Extension (S1) 4 Good Abduction 4 Good Adduction 4 Good External Rotation 4 Good Internal Rotation 4 Good Knee Strength Knee Manual Muscle Testing Right Flexion (S2) 5 Normal Extension (L3) 5 Normal Left Flexion (S2) 4+ Good+ Extension (L3) 4+ Good+ Comments pain w/flex Ankle/Foot Strength Ankle and Foot Manual Muscle Testing Right Dorsiflexion (L4) 5 Normal Plantarflexion (S1) 5 Normal Left Dorsiflexion (L4) 5 Normal Plantarflexion (S1) 5 Normal PT-OP-Q Treatments Start: 10/18/18 11:23 Freq: Status: Active Protocol: Document 03/01/19 15:56 [facility] (Rec: 03/01/19 16:43 [facility] [id number]) Therapeutic Exercises Supine Exercises stretch Supine Exercise Name piriformis stretch & figure 4 stretch Side left Reps/Minutes 30 sec ea abdominal series Supine Exercise Name flex & diagonal & ext Side bilateral Reps/Minutes 30sec holds Standing Exercises squat Standing Exercise Name focus on neutral posture for form Side bilateral Reps/Minutes 15 Therapeutic Activity Therapeutic Activity posture Name standing Manual Therapy Treatment Soft Tissue Mobilization pirifromis Body Location piriformis L & glutes Mobilization Type Rolling Body Position Prone Comments w/hip IR/ER Joint Mobilizations hip Joint L hip Direction on axis ER FM Manual Techniques HS c/r Type 3 plane c/r B Comments improved range B from about 45 deg to about 85 deg hip flex PT-OP-T Assessment and Plan Start: 10/18/18 11:23 Freq: Status: Active Protocol: Document 03/01/19 15:56 [facility] (Rec: 03/01/19 16:43 [facility] [id number]) Physical Therapy Assessment Goals Running Impairment pt currently unable to run due to hip pain Intermediate Goal (LTG) Pt will be able to run for a 1 mile without symptoms LTG Duration 8 weeks HEP Impairment pt does not have a safe HEP to comply Intermediate Goal (LTG) Pt will comply to HEP independently with proper body mechanics to improve overall strength and injury prevention LEFS Impairment lowered LEFS score [employer] Goal (LTG) To increase pt's impairment level to 0% (currently 1-19% at 76) to improve quality of life LTG Duration 12 weeks Strength Impairment impaired abdominal and hip strength [employer] Goal (LTG) To improve pt's hip and abdominal strength by 1MMT to increase pt's trunk stability for lifting/ running activities LTG Duration 12 weeks Assessment Summary Assessment Pt had improved ability to squat appropriately and bend knee after manual treatment. Improved ability to go into hip flex with knee ext with 3 plane c/r stretching. She has significant ITB tightness that is likely contributing to her hip and knee pain on her L side. With cueing, pt was able to go through squatting with good mechanics. She was encouraged on compliance with HEP. Physical Therapy Plan Frequency and Duration Frequency of Treatment 1-2x/week Duration of Treatment 2 months Plan of Care Start Date 02/15/19 Plan of Care End Date 04/17/19 Next Visit Focus/Plan Next Note Type Treatment Note Next Visit Plan cont to work on hip, thigh and pelvis mobility
--- NOTE | 2019-03-08 19:08 | PT.OTN ---
Current Diagnoses Other chronic pain (03/08/19) Pain in left hip (03/08/19) Other symptoms and signs involving the musculoskeletal system (03/08/19) Physical Therapy Treatment Note PT-OP-A Visit Information Start: 10/18/18 11:23 Freq: Status: Active Protocol: Document 03/08/19 19:01 [facility] (Rec: 03/08/19 19:08 [facility] [id number]) Out-Patient Physical Therapy Visit Information Visit Information Visit Type Treatment Note Visit Start Time 17:32 Visit Stop Time 18:28 Total Visit Minutes 41 Visit Number 12 Number of DESK MAKER Visits 0 PT-OP-B Current Condition Start: 10/18/18 11:23 Freq: Status: Active Protocol: Document 10/18/18 09:45 HH (Rec: 10/18/18 12:48 HH [email or web address]) Current Condition History of Current Condition Onset Date 2 years ago Current Complaints L hip pain, difficulty in running and lifting History of Current Condition Pt is a 43 yo female who has 4 procedure for her 4 children over the past 20 years. Pt stated her L hip pain symptoms started around 2years ago as a constant deep, achy and dull joint pain and occasional pinching sensation. Pain tends to get worse with inactivity/ increase physical work such as running and lifting but gets better with warm up and non strenuous movements. Pt thinks she has poor hip flexibility and poor abdominal strength. She noticed there's some separation between her abdominal muscle and bulging muscle mass on the side of belly button. Pt currently works out 3x/week and she notices her quads and hip muscles tend to get sore/ fatigue very often during abdominal exercises. She reports she has hernia at L lower quadrant of her abdominal area and it is very painful during coughing/ exertion. Pt tends to give pressure/compressure to that area during coughing and exertion. In addition, pt also c/o L jaw pain, R shoulder pain and R mid back pain since her 2nd children was born when she was 22yo. Pt stated she did x-ray and reports there's arthritis change and hopefully she doesnt need any surgery to address aforementioned symptoms. Treatment Goals Patient/Caregiver Goals 1. Avoid surgery for hernia 2. To increase hip mobility and abdominal strength 3. To be able to run / lift weights again as her workout routine. Prior Functional Status Baseline Function- ADL's Independent Baseline Function- Mobility Independent Current Functional Impairments (Reported) Functional Limitations- ADL's indepedent without difficulty Functional Limitations- Mobility/Gait indepedent without difficulty Functional Limitations- Recreation/ Unable to run / lift heavy Hobbies weight Personal Factors Other Personal Factors That May Effect L lower abdominal hernia Therapy/Recovery multiple procedure at lower abdominal PT-OP-C Subjective Start: 10/18/18 11:23 Freq: Status: Active Protocol: Document 03/08/19 19:01 [facility] (Rec: 03/08/19 19:08 [facility] [id number]) OP-PT Subjective Patient Comments Patient Comments Pt reports feeling good after last session. Notes tailbone pain today PT-OP-F Manual Assessment Start: 10/18/18 11:23 Freq: Status: Active Protocol: Document 10/18/18 09:45 HH (Rec: 10/18/18 12:48 HH [email or web address]) Manual Assessments Soft Tissue Assessment Soft Tissue Mobility Assessment Tenderness noted at L hip flexors and adductors region PT-OP-H Neuro Start: 10/18/18 11:23 Freq: Status: Active Protocol: Document 10/18/18 09:45 HH (Rec: 10/18/18 12:48 HH [email or web address]) Deep Tendon Reflex & Clonus Assessment Deep Tendon Reflex Right Achilles Deep Tendon Reflex 2+ Normal Left Achilles Deep Tendon Reflex 2+ Normal Right Patellar Deep Tendon Reflex 2+ Normal Left Patellar Deep Tendon Reflex 2+ Normal PT-OP-J Posture/Palpation/Skin Start: 10/18/18 11:23 Freq: Status: Active Protocol: Document 02/15/19 08:15 [facility] (Rec: 02/15/19 09:16 [facility] [id number]) Posture Evaluation [facility] Postural Classification System [facility] Postural Classifications Posterior/Posterior Vertebral Compression Test 0 Elbow Flexion Test 3 Lumbar Protective Mechanism Left AP 1 Lumbar Protective Mechanism Right AP 2 Lumbar Protective Mechanism Left PA 5 Lumbar Protective Mechanism Right PA 1 PT-OP-K Range of Motion Start: 10/18/18 11:23 Freq: Status: Active Protocol: Document 10/18/18 09:45 HH (Rec: 10/18/18 12:48 HH [email or web address]) Lumbar Spine Range of Motion Lumbar Spine Active Percentage Testing Position Standing Flexion 80 Extension 60 Rotation Left 60 Rotation Right 60 Lateral Flexion Left 60 Lateral Flexion Right 60 ROM Limitations Soft Tissue Tightness Hip Goniometric Range of Motion Hip Right Active Hip ROM WFL Yes Testing Position Supine Flexion w/Knee Flexed 142 Extension 20 Abduction 40 Left Active Hip ROM WFL Yes Testing Position Supine Flexion w/Knee Flexed 145 Extension 20 Abduction 35 PT-OP-L Special Tests Start: 10/18/18 11:23 Freq: Status: Active Protocol: Document 10/18/18 09:45 (Rec: 10/18/18 12:48 [email or web address]) Special Tests Lumbar Spine Special Tests Other- 1 Test Results +ve Comments noticeable separation between rectus abdominis Standing Flexion Test Results +ve Comments mild hump at L thoracic and R lumbar region Hip Special Tests ELVIA Test Results -ve bilaterally Scour Test Test Results +ve bilaterally Comments reports of slight discomfort bilaterally Viraj Test Results -ve bilaterally PT-OP-M Strength Start: 10/18/18 11:23 Freq: Status: Active Protocol: Document 02/15/19 08:15 [facility] (Rec: 02/15/19 09:16 [facility] [id number]) Hip Strength Hip Manual Muscle Testing Right Flexion (L2) 3+ Fair+ Extension (S1) 4 Good Abduction 5 Normal Adduction 5 Normal External Rotation 5 Normal Internal Rotation 5 Normal Left Flexion (L2) 4- Good- Extension (S1) 4 Good Abduction 4 Good Adduction 4 Good External Rotation 4 Good Internal Rotation 4 Good Knee Strength Knee Manual Muscle Testing Right Flexion (S2) 5 Normal Extension (L3) 5 Normal Left Flexion (S2) 4+ Good+ Extension (L3) 4+ Good+ Comments pain w/flex Ankle/Foot Strength Ankle and Foot Manual Muscle Testing Right Dorsiflexion (L4) 5 Normal Plantarflexion (S1) 5 Normal Left Dorsiflexion (L4) 5 Normal Plantarflexion (S1) 5 Normal PT-OP-Q Treatments Start: 10/18/18 11:23 Freq: Status: Active Protocol: Document 03/08/19 19:01 [facility] (Rec: 03/08/19 19:08 [facility] [id number]) Therapeutic Activity Therapeutic Activity posture Name standing & unsupported sitting on ball chair like her office chair Manual Therapy Treatment Soft Tissue Mobilization post Body Location along sacral & coccyx borders Mobilization Type Strumming,Sustained Pressure Intensity/Depth Moderate Body Position Prone Joint Mobilizations innominate Joint L Direction ER & IR FM sacrum Joint sacrum Direction R UPA & caudal glidingFM hip Joint L hip Direction on axis ER FM Taping 1 Body Location abdominal Treatment Focus for postural correction Type of Tape white Portillo tape Self-Care/Home Management Treatment Education Other Education edu to try run walk but not to overdo and start with 10 sec run as long as no pain. PT-OP-T Assessment and Plan Start: 10/18/18 11:23 Freq: Status: Active Protocol: Document 03/08/19 19:01 [facility] (Rec: 03/08/19 19:08 [facility] [id number]) Physical Therapy Assessment Goals Running Impairment pt currently unable to run due to hip pain Custodial Goal (LTG) Pt will be able to run for a 1 mile without symptoms LTG Duration 8 weeks HEP Impairment pt does not have a safe HEP to comply [employer] Goal (LTG) Pt will comply to HEP independently with proper body mechanics to improve overall strength and injury prevention LEFS Impairment lowered LEFS score [employer] Goal (LTG) To increase pt's impairment level to 0% (currently 1-19% at 76) to improve quality of life LTG Duration 12 weeks Strength Impairment impaired abdominal and hip strength Custodial Goal (LTG) To improve pt's hip and abdominal strength by 1MMT to increase pt's trunk stability for lifting/ running activities LTG Duration 12 weeks Assessment Summary Assessment Pt was able to improve her posture with cueing today, which dec pain.S he had stiffness and tightness in hip and innominate that wa slimiting her ROM in L hip after mobilizations were done. Physical Therapy Plan Frequency and Duration Frequency of Treatment 1-2x/week Duration of Treatment 2 months Plan of Care Start Date 02/15/19 Plan of Care End Date 04/17/19 Next Visit Focus/Plan Next Note Type Treatment Note Next Visit Plan cont to work on hip, thigh and pelvis mobility & work on gait mechanics
--- NOTE | 2019-04-11 10:29 | PT.OTN ---
Current Diagnoses Other chronic pain (04/11/19) Pain in left hip (04/11/19) Other symptoms and signs involving the musculoskeletal system (04/11/19) Physical Therapy Treatment Note PT-OP-A Visit Information Start: 10/18/18 11:23 Freq: Status: Active Protocol: Document 04/11/19 10:25 LR (Rec: 04/11/19 10:29 [facility] [id number]) Out-Patient Physical Therapy Visit Information Visit Information Visit Type Treatment Note Visit Start Time 09:03 Visit Stop Time 09:45 Total Visit Minutes 42 Visit Number 13 Number of CONSUMER INSIGHTS SPECIALIST Visits 0 PT-OP-B Current Condition Start: 10/18/18 11:23 Freq: Status: Active Protocol: Document 10/18/18 09:45 HH (Rec: 10/18/18 12:48 HH [email or web address]) Current Condition History of Current Condition Onset Date 2 years ago Current Complaints L hip pain, difficulty in running and lifting History of Current Condition Pt is a 43 yo female who has 4 procedure for her 4 children over the past 20 years. Pt stated her L hip pain symptoms started around 2years ago as a constant deep, achy and dull joint pain and occasional pinching sensation. Pain tends to get worse with inactivity/ increase physical work such as running and lifting but gets better with warm up and non strenuous movements. Pt thinks she has poor hip flexibility and poor abdominal strength. She noticed there's some separation between her abdominal muscle and bulging muscle mass on the side of belly button. Pt currently works out 3x/week and she notices her quads and hip muscles tend to get sore/ fatigue very often during abdominal exercises. She reports she has hernia at L lower quadrant of her abdominal area and it is very painful during coughing/ exertion. Pt tends to give pressure/compressure to that area during coughing and exertion. In addition, pt also c/o L jaw pain, R shoulder pain and R mid back pain since her 2nd children was born when she was 22yo. Pt stated she did x-ray and reports there's arthritis change and hopefully she doesnt need any surgery to address aforementioned symptoms. Treatment Goals Patient/Caregiver Goals 1. Avoid surgery for hernia 2. To increase hip mobility and abdominal strength 3. To be able to run / lift weights again as her workout routine. Prior Functional Status Baseline Function- ADL's Independent Baseline Function- Mobility Independent Current Functional Impairments (Reported) Functional Limitations- ADL's indepedent without difficulty Functional Limitations- Mobility/Gait indepedent without difficulty Functional Limitations- Recreation/ Unable to run / lift heavy Hobbies weight Personal Factors Other Personal Factors That May Effect L lower abdominal hernia Therapy/Recovery multiple procedure at lower abdominal PT-OP-C Subjective Start: 10/18/18 11:23 Freq: Status: Active Protocol: Document 04/11/19 10:25 [facility] (Rec: 04/11/19 10:29 [facility] [id number]) OP-PT Subjective Patient Comments Patient Comments Pt reports she has been working out more. Pt reports she plans to run today. Her knees and hip feels better when she rolls out her hip PT-OP-F Manual Assessment Start: 10/18/18 11:23 Freq: Status: Active Protocol: Document 10/18/18 09:45 HH (Rec: 10/18/18 12:48 HH [email or web address]) Manual Assessments Soft Tissue Assessment Soft Tissue Mobility Assessment Tenderness noted at L hip flexors and adductors region PT-OP-H Neuro Start: 10/18/18 11:23 Freq: Status: Active Protocol: Document 10/18/18 09:45 HH (Rec: 10/18/18 12:48 HH [email or web address]) Deep Tendon Reflex & Clonus Assessment Deep Tendon Reflex Right Achilles Deep Tendon Reflex 2+ Normal Left Achilles Deep Tendon Reflex 2+ Normal Right Patellar Deep Tendon Reflex 2+ Normal Left Patellar Deep Tendon Reflex 2+ Normal PT-OP-J Posture/Palpation/Skin Start: 10/18/18 11:23 Freq: Status: Active Protocol: Document 02/15/19 08:15 [facility] (Rec: 02/15/19 09:16 [facility] [id number]) Posture Evaluation Maria Ines Postural Classification System Maria Ines Postural Classifications Posterior/Posterior Vertebral Compression Test 0 Elbow Flexion Test 3 Lumbar Protective Mechanism Left AP 1 Lumbar Protective Mechanism Right AP 2 Lumbar Protective Mechanism Left PA 5 Lumbar Protective Mechanism Right PA 1 PT-OP-K Range of Motion Start: 10/18/18 11:23 Freq: Status: Active Protocol: Document 10/18/18 09:45 HH (Rec: 10/18/18 12:48 HH [email or web address]) Lumbar Spine Range of Motion Lumbar Spine Active Percentage Testing Position Standing Flexion 80 Extension 60 Rotation Left 60 Rotation Right 60 Lateral Flexion Left 60 Lateral Flexion Right 60 ROM Limitations Soft Tissue Tightness Hip Goniometric Range of Motion Hip Right Active Hip ROM WFL Yes Testing Position Supine Flexion w/Knee Flexed 142 Extension 20 Abduction 40 Left Active Hip ROM WFL Yes Testing Position Supine Flexion w/Knee Flexed 145 Extension 20 Abduction 35 PT-OP-L Special Tests Start: 10/18/18 11:23 Freq: Status: Active Protocol: Document 10/18/18 09:45 (Rec: 10/18/18 12:48 [email or web address]) Special Tests Lumbar Spine Special Tests Other- 1 Test Results +ve Comments noticeable separation between rectus abdominis Standing Flexion Test Results +ve Comments mild hump at L thoracic and R lumbar region Hip Special Tests ELVIA Test Results -ve bilaterally Scour Test Test Results +ve bilaterally Comments reports of slight discomfort bilaterally Viraj Test Results -ve bilaterally PT-OP-M Strength Start: 10/18/18 11:23 Freq: Status: Active Protocol: Document 02/15/19 08:15 [facility] (Rec: 02/15/19 09:16 [facility] [id number]) Hip Strength Hip Manual Muscle Testing Right Flexion (L2) 3+ Fair+ Extension (S1) 4 Good Abduction 5 Normal Adduction 5 Normal External Rotation 5 Normal Internal Rotation 5 Normal Left Flexion (L2) 4- Good- Extension (S1) 4 Good Abduction 4 Good Adduction 4 Good External Rotation 4 Good Internal Rotation 4 Good Knee Strength Knee Manual Muscle Testing Right Flexion (S2) 5 Normal Extension (L3) 5 Normal Left Flexion (S2) 4+ Good+ Extension (L3) 4+ Good+ Comments pain w/flex Ankle/Foot Strength Ankle and Foot Manual Muscle Testing Right Dorsiflexion (L4) 5 Normal Plantarflexion (S1) 5 Normal Left Dorsiflexion (L4) 5 Normal Plantarflexion (S1) 5 Normal PT-OP-Q Treatments Start: 10/18/18 11:23 Freq: Status: Active Protocol: Document 04/11/19 10:25 [facility] (Rec: 04/11/19 10:29 [facility] [id number]) Gait Training Gait Activity running Description inc push off & dec UE rotation Manual Therapy Treatment Soft Tissue Mobilization pirifromis Body Location piriformis R & glutes Mobilization Type Rolling Body Position Prone Comments w/hip IR/ER Joint Mobilizations innominate Joint R Direction ER & IR FM sacrum Joint sacrum Direction L UPA & caudal glidingFM hip Joint R hip Direction on axis ER FM PT-OP-T Assessment and Plan Start: 10/18/18 11:23 Freq: Status: Active Protocol: Document 04/11/19 10:25 [facility] (Rec: 04/11/19 10:29 [facility] [email or web address]) Physical Therapy Assessment Goals Running Impairment pt currently unable to run due to hip pain Library Manager Goal (LTG) Pt will be able to run for a 1 mile without symptoms LTG Duration 8 weeks HEP Impairment pt does not have a safe HEP to comply Library Manager Goal (LTG) Pt will comply to HEP independently with proper body mechanics to improve overall strength and injury prevention LEFS Impairment lowered LEFS score Fdc Goal (LTG) To increase pt's impairment level to 0% (currently 1-19% at 76) to improve quality of life LTG Duration 12 weeks Strength Impairment impaired abdominal and hip strength Library Manager Goal (LTG) To improve pt's hip and abdominal strength by 1MMT to increase pt's trunk stability for lifting/ running activities LTG Duration 12 weeks Assessment Summary Assessment Pt had significant stiffness throughout hip, and pelvis that improved with treatment. She was encouraged to stretch and do her exercises on her own in order to improve her maintaining her flexibility and mobility on her own. Her strength is improving and was able to push off more when cueing when running. Cueing required to avoid rotation. Physical Therapy Plan Frequency and Duration Frequency of Treatment 1-2x/week Duration of Treatment 2 months Plan of Care Start Date 02/15/19 Plan of Care End Date 04/17/19 Next Visit Focus/Plan Next Note Type Progress Note Next Visit Plan cont to work on hip, thigh and pelvis mobility & work on gait mechanics; work on running mechanics
--- NOTE | 2019-04-18 09:46 | PT.OTN ---
Current Diagnoses Other chronic pain (04/18/19) Pain in left hip (04/18/19) Other symptoms and signs involving the musculoskeletal system (04/18/19) Physical Therapy Treatment Note PT-OP-A Visit Information Start: 10/18/18 11:23 Freq: Status: Active Protocol: Document 04/18/19 08:27 [facility] (Rec: 04/18/19 09:46 [facility] [id number]) Out-Patient Physical Therapy Visit Information Visit Information Visit Type Progress Note Visit Start Time 09:00 Visit Stop Time 09:40 Total Visit Minutes 40 Visit Number 14 Number of NON DESTRUCTIVE TESTING SCIENTIST Visits 0 PT-OP-B Current Condition Start: 10/18/18 11:23 Freq: Status: Active Protocol: Document 10/18/18 09:45 HH (Rec: 10/18/18 12:48 HH [email or web address]) Current Condition History of Current Condition Onset Date 2 years ago Current Complaints L hip pain, difficulty in running and lifting History of Current Condition Pt is a 43 yo female who has 4 procedure for her 4 children over the past 20 years. Pt stated her L hip pain symptoms started around 2years ago as a constant deep, achy and dull joint pain and occasional pinching sensation. Pain tends to get worse with inactivity/ increase physical work such as running and lifting but gets better with warm up and non strenuous movements. Pt thinks she has poor hip flexibility and poor abdominal strength. She noticed there's some separation between her abdominal muscle and bulging muscle mass on the side of belly button. Pt currently works out 3x/week and she notices her quads and hip muscles tend to get sore/ fatigue very often during abdominal exercises. She reports she has hernia at L lower quadrant of her abdominal area and it is very painful during coughing/ exertion. Pt tends to give pressure/compressure to that area during coughing and exertion. In addition, pt also c/o L jaw pain, R shoulder pain and R mid back pain since her 2nd children was born when she was 22yo. Pt stated she did x-ray and reports there's arthritis change and hopefully she doesnt need any surgery to address aforementioned symptoms. Treatment Goals Patient/Caregiver Goals 1. Avoid surgery for hernia 2. To increase hip mobility and abdominal strength 3. To be able to run / lift weights again as her workout routine. Prior Functional Status Baseline Function- ADL's Independent Baseline Function- Mobility Independent Current Functional Impairments (Reported) Functional Limitations- ADL's indepedent without difficulty Functional Limitations- Mobility/Gait indepedent without difficulty Functional Limitations- Recreation/ Unable to run / lift heavy Hobbies weight Personal Factors Other Personal Factors That May Effect L lower abdominal hernia Therapy/Recovery multiple procedure at lower abdominal PT-OP-C Subjective Start: 10/18/18 11:23 Freq: Status: Active Protocol: Document 04/18/19 08:27 [facility] (Rec: 04/18/19 09:46 [facility] [id number]) OP-PT Subjective Patient Comments Patient Comments Pt reports running went well except that she was sick so she didn't go too far. PT-OP-F Manual Assessment Start: 10/18/18 11:23 Freq: Status: Active Protocol: Document 10/18/18 09:45 HH (Rec: 10/18/18 12:48 HH [email or web address]) Manual Assessments Soft Tissue Assessment Soft Tissue Mobility Assessment Tenderness noted at L hip flexors and adductors region PT-OP-H Neuro Start: 10/18/18 11:23 Freq: Status: Active Protocol: Document 10/18/18 09:45 HH (Rec: 10/18/18 12:48 HH [email or web address]) Deep Tendon Reflex & Clonus Assessment Deep Tendon Reflex Right Achilles Deep Tendon Reflex 2+ Normal Left Achilles Deep Tendon Reflex 2+ Normal Right Patellar Deep Tendon Reflex 2+ Normal Left Patellar Deep Tendon Reflex 2+ Normal PT-OP-J Posture/Palpation/Skin Start: 10/18/18 11:23 Freq: Status: Active Protocol: Document 04/18/19 08:27 [facility] (Rec: 04/18/19 09:46 [facility] [id number]) Posture Evaluation Maria Ines Postural Classification System Vertebral Compression Test 3 Elbow Flexion Test 3 Lumbar Protective Mechanism Left AP 3 Lumbar Protective Mechanism Right AP 4 Lumbar Protective Mechanism Left PA 5 Lumbar Protective Mechanism Right PA 3 PT-OP-K Range of Motion Start: 10/18/18 11:23 Freq: Status: Active Protocol: Document 10/18/18 09:45 HH (Rec: 10/18/18 12:48 HH [email or web address]) Lumbar Spine Range of Motion Lumbar Spine Active Percentage Testing Position Standing Flexion 80 Extension 60 Rotation Left 60 Rotation Right 60 Lateral Flexion Left 60 Lateral Flexion Right 60 ROM Limitations Soft Tissue Tightness Hip Goniometric Range of Motion Hip Right Active Hip ROM WFL Yes Testing Position Supine Flexion w/Knee Flexed 142 Extension 20 Abduction 40 Left Active Hip ROM WFL Yes Testing Position Supine Flexion w/Knee Flexed 145 Extension 20 Abduction 35 PT-OP-L Special Tests Start: 10/18/18 11:23 Freq: Status: Active Protocol: Document 10/18/18 09:45 (Rec: 10/18/18 12:48 [email or web address]) Special Tests Lumbar Spine Special Tests Other- 1 Test Results +ve Comments noticeable separation between rectus abdominis Standing Flexion Test Results +ve Comments mild hump at L thoracic and R lumbar region Hip Special Tests ELVIA Test Results -ve bilaterally Scour Test Test Results +ve bilaterally Comments reports of slight discomfort bilaterally Viraj Test Results -ve bilaterally PT-OP-M Strength Start: 10/18/18 11:23 Freq: Status: Active Protocol: Document 04/18/19 08:27 [facility] (Rec: 04/18/19 09:46 [facility] [id number]) Hip Strength Hip Manual Muscle Testing Right Flexion (L2) 4 Good Abduction 5 Normal Adduction 5 Normal External Rotation 5 Normal Internal Rotation 5 Normal Left Flexion (L2) 4 Good Abduction 5 Normal Adduction 5 Normal External Rotation 5 Normal Internal Rotation 5 Normal Knee Strength Knee Manual Muscle Testing Right Flexion (S2) 5 Normal Extension (L3) 5 Normal Left Flexion (S2) 5 Normal Extension (L3) 5 Normal PT-OP-Q Treatments Start: 10/18/18 11:23 Freq: Status: Active Protocol: Document 04/18/19 08:27 [facility] (Rec: 04/18/19 09:46 [facility] [id number]) Therapeutic Exercises Supine Exercises abdominal series Supine Exercise Name flex, diagonal, ext Side bilateral Reps/Minutes 30 sec bridge Supine Exercise Name w/alt march Side bilateral Reps/Minutes 10 Prone Exercises plank Reps/Minutes 30 sec Sidelying Exercises hip abd Side left Reps/Minutes 15 Manual Therapy Treatment Soft Tissue Mobilization QL Body Location B Mobilization Type Rolling Intensity/Depth Moderate Joint Mobilizations hip Joint R hip Direction on axis ER FM Self-Care/Home Management Treatment Education Other Education Review of HEP & discussed cont core & slow progression back to running PT-OP-T Assessment and Plan Start: 10/18/18 11:23 Freq: Status: Active Protocol: Document 04/18/19 08:27 [facility] (Rec: 04/18/19 09:46 [facility] [id number]) Physical Therapy Assessment Goals Running Impairment pt currently unable to run due to hip pain Long-Term Goal (LTG) Pt will be able to run for a 1 mile without symptoms LTG Duration achieved HEP Impairment pt does not have a safe HEP to comply Long-Term Goal (LTG) Pt will comply to HEP independently with proper body mechanics to improve overall strength and injury prevention LTG Duration achieved LEFS Impairment lowered LEFS score Day Care Worker Goal (LTG) To increase pt's impairment level to 0% (currently 1-19% at 76) to improve quality of life LTG Duration achieved to 0% Strength Impairment impaired abdominal and hip strength Long-Term Goal (LTG) To improve pt's hip and abdominal strength by 1MMT to increase pt's trunk stability for lifting/ running activities LTG Duration achieved Assessment Summary Assessment Pt has achieved goals and is returning back to her typical workout routine without issue. She has been educated re: appropriate stretches and strengthening to continue and how to gradually increase her running Pt is d/c at this time . Physical Therapy Plan Discharge Physical Therapy Discharge Reasons Goals Met
== END 2019-05-26 13:21 ==
LOC: PHYS 09:00
PROVIDERS: PCP Physician Assistant; Visit Provider Physician Assistant
DX: M25.552 Pain in left hip (principal); G89.29 Other chronic pain; R29.898 Other symptoms and signs involving the musculoskeletal system
CPT/HCPCS: 97110; 97112; 97116; 97140; 97162; 97530

== ENCOUNTER 2019-07-11 11:55 | Day surgery (SDC) | payer BC, SELFPAY ==
[2019-07-11] VITALS (8 sets, daily range): BP systolic 92–108; BP diastolic 59–66; PULSE 51–65; RESP 11–17; TEMP 35.9–37; O2SAT 98–100; BMI 24.2
[2019-07-11] MEDS: SODIUM CHLORIDE 0.9% 1,000 ML 200 ML IV ×2 (12:30→13:33)
--- NOTE | 2019-07-11 12:54 | PM.HP.1 ---
History of Present Illness History of Present Illness Date Patient Seen: 07/11/19 Time Patient Seen: 12:54 Chief complaint: [id number] Narrative: This is a 43-year-old woman with high risk family history for colon polyps in her mother and colon cancer in her maternal grandfather. She is here for her initial high risk screening colonoscopy. She denies any personal history of melena or hematochezia. She does have chronic left lower quadrant pain with no known explanation. No unexplained weight loss, and she denies significant constipation or diarrhea. ROS: Thirteen system review is otherwise negative other than as mentioned below and in HPI. PE: GENERAL: Well groomed and cooperative. Appears stated age. Answers questions promptly and appropriately. Vital signs noted. HENT: Normocephalic, atraumatic. Hearing intact. Oral mucosa is pink and moist. EYES: Conjunctiva pink, sclera white, no periorbital swelling. CARDIOVASCULAR: Regular rate. No pedal edema. RESPIRATORY: Non-tachypneic, breathing comfortably on room air. GASTROINTESTINAL: Abdomen soft and non-distended GENITALURINARY: No flank tenderness. MUSCULOSKELETAL: Equal tone and mass bilaterally. SKIN: Warm, dry, soft, appropriate color for ethnicity. No other lesions, rashes, or wounds. NEURO: Alert and Oriented X 3. No gross sensory deficits, or cognitive issues. PSYCH: Appropriate affect and mood. Patient History Surgical History Status post laparoscopy Family & Social History Family History Father Colon polyps Mother Colon polyps Sister Age: 47 Psoriasis Eczema, unspecified type Deafness, bilateral Social History: household members spouse Tobacco & Substance use: Smoking Status Former smoker Meds Home Medications and Allergies Home Medications Medication Instructions Recorded Confirmed Type ibuprofen [Advil Liqui-Gel] 200 mg PO PRN PRN #0 04/22/16 05/02/19 History fluticasone propionate [Flonase 1 spray INTRANASAL QDAY #0 10/22/16 05/02/19 History Allergy Relief] mometasone 50 mcg/actuation nasal 2 spray NASAL BID #17 gram 05/02/19 05/02/19 Rx spray Allergies Allergy/AdvReac Type Severity Reaction Status Date / Time Something in a spinal block Allergy Mild itchy Uncoded 05/02/19 18:08 Exam Vital Signs (past 8 hours): - 07/11/19 12:18 Temperature 98 F Pulse Rate 65 Respiratory Rate 16 Blood Pressure 108/62 Pulse Oximetry 98 Oxygen Delivery Method Room Air Assessment & Plan Assessment and plan (1) Family history of colon cancer requiring screening colonoscopy: Current visit: Yes Status: Acute (2) High risk for colon cancer: Current visit: Yes Status: Acute Assessment & Plan narrative: This is a 43-year-old woman with high risk family history for colon cancer. Risks and benefits of screening colonoscopy including bleeding, perforation, need for additional procedures, risks of anesthesia were discussed. The patient desires to proceed with her colonoscopy procedure. Time Spent With Patient Time with patient: 15-24 minutes Quality VTE Deep Vein Thrombosis/Pulmonary Embolism Present on Admission: No
--- NOTE | 2019-07-11 13:29 | PM.OP.ENDO ---
Operative Date/Time/Diagnoses Date of procedure: 07/11/19 Time of procedure: 13:29 Pre-op diagnosis: High risk family history for colon cancer and colon polyps Post-op diagnosis: other (Grade 2-3 internal hemorrhoids, high risk family history, no polyps) Procedure & Clinicians Study performed: High risk screening colonoscopy Same procedure as scheduled: Yes Indications: Family history of mother with early advanced polyps, and maternal grandfather with colon cancer at age 50 Surgeon: Clarice Khan Procedure Notes SCOAP/Timeout: Performed Procedure in detail: The patient was brought to the room and placed in left lateral decubitus position with all bony prominences padded. A time-out was performed and then the patient was given procedural sedation starting with 3 mg of Versed and 100 mcg of fentanyl. A total of 6 mg of Versed and 200 micro g of fentanyl were given for the entire procedure. Vitals were monitored throughout the procedure and remained stable. Once adequately sedated the procedure was begun. A rectal exam was performed revealing moderate external hemorrhoids, increased sphincter tone. The colonoscope was then introduced to the rectum and advanced to the cecum in the usual fashion. The colon was quite tortuous and required advancement reverse to reach the cecum.The cecum was identified by the appendiceal orifice, the mucosal tri-fold, and the ileocecal valve. The scope was then retracted while rotating side to side and examining each mucosal fold. No polyps or other abnormalities were seen within the colon. At the conclusion of the procedure retroflexion was performed and moderately large grade 2-3 internal hemorrhoids without stigmata of bleeding were seen. The scope was then withdrawn from the rectum the procedure was concluded. The patient tolerated the procedure well and was transferred to the PACU in stable condition. Scope withdrawal time: 7 Sedation minutes: 30 Findings: internal hemorrhoids Specimen(s): none sent Complications: none Impression: No polyps, moderately large internal hemorrhoids Post-procedure Recommendations: Colonscopy in 5 years (For high risk family history) Follow up: as needed Disposition: PACU
[2019-07-11] MEDS: MIDAZOLAM 5 MG/5 ML VIAL IV (13:35)
[2019-07-11] MEDS: fentaNYL 250 MCG/5 ML INJ IV (13:35)
== END 2019-07-11 14:30 | disposition home or self-care (01) ==
PROVIDERS: Family Provider Physician Assistant; PCP Physician Assistant; Visit Provider Surgery
PROC: 0DJD8ZZ Inspection of Lower Intestinal Tract, Via Natural or Artificial Opening Endoscopic (ICD-10-PCS; CPT 45378; principal; 2019-07-11 13:00)
DX: Z12.11 Encounter for screening for malignant neoplasm of colon (principal); Z80.0 Family history of malignant neoplasm of digestive organs; Z87.891 Personal history of nicotine dependence; K64.1 Second degree hemorrhoids
CPT/HCPCS: 45378; 99152; 99153; J2250; J3010

== ENCOUNTER → 2020-01-30 09:52 | Outpatient (CLI) | payer BC, SELFPAY ==
[2020-01-30 11:37] LABS: Add Manual Diff / Slide Review NO; Appearance Urine UA CLEAR; Basophils Absolute Auto 100 /uL (0-100); Basophils Percent Auto 1.3 % (0-2); Bilirubin Urine UA NEGATIVE (NEGATIVE); Color Urine UA YELLOW; Eosinophils Absolute Auto 200 /uL (0-450); Eosinophils Percent Auto 4.6 % (2-4); Glucose Urine UA NEGATIVE (Negative); Hematocrit 36.2 % (36-46); Hemoglobin 12.3 g/dL (12.0-16.0); Ketones Urine UA NEGATIVE (NEGATIVE); Leukocyte Esterase Urine UA NEGATIVE (NEGATIVE); Lymphocytes Absolute Auto 1900 /uL (1100-4500); Lymphocytes Percent Auto 35.2 % (25-40); Mean Corpuscular HGB Conc 33.9 % (30-36); Mean Corpuscular Hemoglobin 31.1 PG (26-34); Mean Corpuscular Volume 91.9 fL (80-100); Monocytes Absolute Auto 500 /uL (0-900); Monocytes Percent Auto 8.6 % (3-14); Neutrophils Absolute Auto 2700 /uL (1500-7000); Neutrophils Percent Auto 50.3 % (50-75); Nitrite Urine UA NEGATIVE (Negative); Occult Blood Urine UA TRACE-LYSED (Negative); Platelet Count 209 X10^3/uL (150-400); Protein Urine UA NEGATIVE (Negative); Red Blood Cell Count 3.93 X10^6/uL (4.0-5.2); Red Cell Distribution Width 13.5 % (11.6-14.8); Urobilinogen Urine UA 0.2 E.U./dL (0.2); White Blood Cell Count 5.3 X10^3/uL (4.5-11.0)
[2020-01-30 11:43] LABS: pH Urine UA 7.5 (4.5-8.0)
[2020-01-30 12:22] LABS: Alanine Aminotransferase 21 IU/L (<35); Albumin 4.5 g/dL (3.5-5.0); Albumin Globulin Ratio 1.7 (1.0-2.8); Alkaline Phosphatase 31 U/L (38-126); Aspartate Aminotransferase 26 IU/L (14-36); BUN Creatinine Ratio 15.6 (6-22); Bilirubin Total 0.5 mg/dL (0.2-1.3); Blood Urea Nitrogen 10 mg/dL (7-17); Calcium 9.5 mg/dL (8.4-10.2); Carbon Dioxide 29 mmol/L (22-32); Chloride 103 mmol/L (98-107); Cholesterol 254 mg/dL (140-199); Estimated Glomerular Filt Rate > 60.0 mL/min (>60); Globulin 2.6 g/dL (1.7-4.1); Glucose 85 mg/dL (70-100); HDL Cholesterol 80 mg/dL (40-60); HEMOLYSIS < 15 (0-50); LDL Cholesterol Calculated 160 mg/dL (<100); Potassium 4.2 mmol/L (3.4-5.1); Sodium 138 mmol/L (137-145); Total Protein 7.1 g/dL (6.3-8.2); Triglycerides 71 mg/dL (35-150)
== END ==
PROVIDERS: Family Provider Physician Assistant; PCP Registered Nurse; Referring Provider Registered Nurse; Visit Provider Registered Nurse
DX: E78.5 Hyperlipidemia, unspecified (principal); M79.671 Pain in right foot
CPT/HCPCS: 36415; 80053; 80061; 81003; 85025

== ENCOUNTER → 2020-08-29 09:25 | Outpatient (CLI) | payer BC, SELFPAY ==
[2020-08-29 09:47] LABS: COVID19 -Nasal RAPID Negative (Negative)
== END ==
PROVIDERS: Family Provider Physician Assistant; PCP Registered Nurse; Visit Provider Nurse Practitioner
DX: Z20.822 Contact with and (suspected) exposure to COVID-19 (principal)
CPT/HCPCS: 87635

== ENCOUNTER → 2021-11-12 09:11 | Outpatient (CLI) | payer BC, SELFPAY ==
[2021-11-12 10:28] LABS: Alanine Aminotransferase 19 IU/L (<35); Albumin 4.5 g/dL (3.5-5.0); Albumin Globulin Ratio 1.4 (1.0-2.8); Alkaline Phosphatase 33 U/L (38-126); Aspartate Aminotransferase 26 IU/L (14-36); BUN Creatinine Ratio 16.5 (6-22); Bilirubin Total 0.4 mg/dL (0.2-1.3); Blood Urea Nitrogen 14 mg/dL (7-17); Calcium 9.4 mg/dL (8.4-10.2); Carbon Dioxide 28 mmol/L (22-32); Chloride 103 mmol/L (98-107); Cholesterol 275 mg/dL (140-199); Estimated Glomerular Filt Rate > 60 mL/min (>60); Globulin 3.2 g/dL (1.7-4.1); Glucose 85 mg/dL (70-100); HDL Cholesterol 89 mg/dL (40-60); HEMOLYSIS < 15 (0-50); LDL Cholesterol Calculated 175 mg/dL (<100); Potassium 4.1 mmol/L (3.4-5.1); Sodium 139 mmol/L (137-145); Total Protein 7.7 g/dL (6.3-8.2); Triglycerides 56 mg/dL (35-150)
[2021-11-12 10:37] LABS: Add Manual Diff / Slide Review NO; Basophils Absolute Auto 100 /uL (0-100); Basophils Percent Auto 1.2 % (0-2); Eosinophils Absolute Auto 200 /uL (0-450); Eosinophils Percent Auto 2.7 % (2-4); Hematocrit 35.9 % (36-46); Hemoglobin 12.4 g/dL (12.0-16.0); Lymphocytes Absolute Auto 2100 /uL (1100-4500); Lymphocytes Percent Auto 36.9 % (25-40); Mean Corpuscular HGB Conc 34.5 % (30-36); Mean Corpuscular Hemoglobin 31.1 PG (26-34); Monocytes Absolute Auto 300 /uL (0-900); Neutrophils Absolute Auto 3100 /uL (1500-7000); Neutrophils Percent Auto 53.2 % (50-75); Platelet Count 213 X10^3/uL (150-400); Red Blood Cell Count 3.99 X10^6/uL (4.0-5.2); Red Cell Distribution Width 12.8 % (11.6-14.8); White Blood Cell Count 5.8 X10^3/uL (4.5-11.0)
== END ==
PROVIDERS: Family Provider Physician Assistant; PCP Family Medicine; Referring Provider Family Medicine; Visit Provider Family Medicine
DX: E78.5 Hyperlipidemia, unspecified (principal); G89.29 Other chronic pain; M13.0 Polyarthritis, unspecified; M25.552 Pain in left hip; Z01.419 Encounter for gynecological examination (general) (routine) without abnormal findings
CPT/HCPCS: 36415; 80053; 80061; 85025

== ENCOUNTER → 2022-10-27 15:49 | Outpatient (CLI) | payer BC, SELFPAY ==
--- NOTE | 2022-10-27 15:51 | DI.MRI.S_ITS ---
PROCEDURE: MR TMJ WO CON INDICATIONS: LIMITED MANDIBULAR MOVEMENT POST SURGERY TECHNIQUE: Axial T1 spin echo, coronal and sagittal PD fast spin echo through the temporomandibular joints, in both the closed- and open-mouth positions. COMPARISON: None. FINDINGS: Image quality: Excellent. Susceptibility artifacts are seen in bilateral mandibles from prior surgery. Right: Joint is normally aligned on closed and open-mouth positioning. Articular disk demonstrates normal location and morphology. No bony erosions or osteophytes. Left: Diminutive appearance of the left mandibular condyle is noted with osteoarthritic changes involving left temporomandibular joint. No normal articular disc is seen in left temporomandibular joint. Limited range of motion of the left mandibular condyle in relation to left temporal bone is seen on the closed and open mouth views. IMPRESSION: 1. Diminutive appearing left mandibular condyle with absence of normal left articular disc. 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 2. Normal appearing right temporomandibular joint. 3. Postsurgical changes seen in bilateral mandible. Dictated by: Arthur Owens M.D. on 10/28/2022 at 9:23 Approved by: Arthur Owens M.D. on 10/28/2022 at 9:35
== END ==
PROVIDERS: Family Provider Physician Assistant; PCP Family Medicine; Referring Provider Dentist Oral and Maxillofacial Surgery; Visit Provider Dentist Oral and Maxillofacial Surgery
DX: M26.633 Articular disc disorder of bilateral temporomandibular joint (principal); Z98.890 Other specified postprocedural states
CPT/HCPCS: 70336

== ENCOUNTER → 2022-11-15 19:01 | Outpatient (CLI) | payer BC, SELFPAY ==
--- NOTE | 2022-11-15 19:04 | DI.RAD.S_ITS ---
PROCEDURE: XR HIP W PEL IF DONE LT 2V INDICATIONS: fall wed, left hip pain w/add/abd TECHNIQUE: AP pelvis with lateral view(s) of the left hip(s). COMPARISON: [facility], , XR HIP W PEL IF DONE EMILIANO 3TO4V, 09/13/2018, 10:37. FINDINGS: Bones: No fractures or dislocations. Pelvic ring appears intact. No suspicious bony lesions. Soft tissues: The visualized bowel gas pattern is normal. No suspicious soft tissue calcifications. IMPRESSION: No visualized acute fracture or dislocation. However, if clinical concern and/or pain persist, short interval imaging followup in 7-10 days is recommended, as occult injury cannot be definitively excluded. Dictated by: Edilma Mac M.D. on 11/15/2022 at 19:23 Approved by: Edilma Mac M.D. on 11/15/2022 at 19:23
== END ==
PROVIDERS: Family Provider Physician Assistant; PCP Family Medicine; Referring Provider Student in an Organized Health Care Education/Training Program; Visit Provider Student in an Organized Health Care Education/Training Program
DX: M25.552 Pain in left hip (principal)
CPT/HCPCS: 73502

== ENCOUNTER → 2022-11-27 10:34 | Outpatient (CLI) | payer BC, SELFPAY ==
--- NOTE | 2022-11-27 10:35 | DI.US.S_ITS ---
PROCEDURE: US PELVIC COMPLETE INDICATIONS: PAIN; HX OVARIAN CYSTS TECHNIQUE: Real-time scanning was performed of the pelvic organs, with image documentation. Additional endovaginal scanning was necessary due to incomplete visualization of the adnexal and endometrial structures by transabdominal scanning. COMPARISON: None. FINDINGS: Uterus: Uterus is anteverted and normal in size at 7.2 x 3.2 x 5.6 cm. The myometrium is homogeneous. The endometrium measures 3 mm combined thickness. Endometrial calcifications present. Ovaries: The right ovary measures 5.1 x 2.8 x 3.8 cm, with a calculated ovarian volume of 29 cc. The left ovary measures 1.6 x 1.4 x 2.2 cm, with a calculated ovarian volume of 2.6 cc. The ovaries have a normal sonographic appearance. Less than 12 follicles can be seen in each ovary. No adnexal masses are seen. Right ovarian cystic lesion measuring 3.3 x 2.6 x 2.8 cm without internal septations, wall thickening or papillary projection; O-RADS 2. Other: No pathologic free abdominal or pelvic fluid. IMPRESSION: O-RADS 2 right-sided renal cystic lesion. Otherwise, unremarkable exam. We strive to produce accurate, complete, and clear reports of imaging services. To assist us in improving patient care, this report was composed using standard report templates and voice recognition software. Therefore, it may contain abnormal punctuation, insertions and/or omissions. Occasional wrong-word or sound-alike substitutions may occur. Though we review the report and make efforts to correct it, we do recommend that the report be read carefully in proper context to recognize any text inaccuracies. Dictated by: Demarcus Graff M.D. on 11/27/2022 at 11:33 Approved by: Demarcus Graff M.D. on 11/27/2022 at 11:35
== END ==
PROVIDERS: Family Provider Physician Assistant; PCP Family Medicine; Referring Provider Student in an Organized Health Care Education/Training Program; Visit Provider Student in an Organized Health Care Education/Training Program
DX: R10.2 Pelvic and perineal pain (principal); R14.0 Abdominal distension (gaseous); N28.9 Disorder of kidney and ureter, unspecified
CPT/HCPCS: 76830; 76856; 93976

== ENCOUNTER → 2024-02-16 16:38 | Outpatient (CLI) | payer BC, SELFPAY ==
--- NOTE | 2024-02-16 16:44 | DI.RAD.S_ITS ---
PROCEDURE: XR CHEST 2V INDICATIONS: Cough TECHNIQUE: 2 views of the chest were acquired. COMPARISON: None. FINDINGS: Surgical changes and devices: None. Lungs and pleura: Lungs are clear. No pleural effusions or pneumothorax. Mediastinum: Mediastinal contours are normal. Heart size is normal. Bones and chest wall: No suspicious bony abnormalities. Soft tissues appear unremarkable. IMPRESSION: No acute cardiopulmonary abnormality. Dictated by: Dakota Chin M.D. on 02/17/2024 at 10:57 Approved by: Dakota Chin M.D. on 02/17/2024 at 10:59
== END ==
LOC: RAD 16:44
PROVIDERS: Family Provider Physician Assistant; PCP Family Medicine; Referring Provider Nurse Practitioner Family; Visit Provider Nurse Practitioner Family
DX: R05.9 Cough, unspecified (principal)
CPT/HCPCS: 71046